=== PATIENT | female | born 1955 | race Caucasian/White ===

== ENCOUNTER 2016-11-03 11:18 | Inpatient (IN) | payer OTHER, MEDICAID ==
[2016-11-03] VITALS (8 sets, daily range): BP systolic 108–152; BP diastolic 55–93; PULSE 56–86; RESP 14–22; O2SAT 95–100
[~2016-11-03] VITALS: Ht 170.2 cm; Wt 55.4 kg
[~2016-11-03 11:18] MED LIST: ALBU8.5H4 IH; ASPI325T32 PO; ONDA8TAB10 PO; PROC25SU2 RC; TIOT18CA3 IH
--- NOTE | 2016-11-03 11:20 | ED.REPORT ---
HPI-Chest Pain 40 and Over Date of Service Nov 03, 2016 ED Provider: Dr. Manuel Pt is a 61 y/o female w/ a hx of COPD, gastroparesis, presenting to the ED via EMS c/o 08/25 substernal non-radiating CP onset unknown. She c/o associated SOB, nausea, vomiting. She was bradycardic to 40s on route. Medics gave 325 mg ASA but she immediately spit it up. They also gave 4 mg Zofran. social media marketing analyst was notified prior to arrival due to ST elevations in II, III, and AvF. There is no known history of cardiac disease. She is a poor historian. Nursing Notes Stated Complaint: STEMI Nursing Notes Reviewed: Yes Allergies: Coded Allergies: neomycin (Verified Allergy, Mild, REDDNESS,SWELLING, 10/30/14) Scheduled Tiotropium [place] (Spiriva) 18 Mcg Cap.w.dev 18 MCG IH DAILY Scheduled PRN Aspirin (Aspirin) 325 Mg Tablet 325 MG PO DAILY PRN PRN For Pain Ondansetron ODT (Ondansetron ODT) 8 Mg Tab.rapdis 8 MG PO QID PRN PRN For Nausea Prochlorperazine Maleate (Compro) 25 Mg Supp.rect 25 MG RC BID PRN PRN For Nausea General Time Seen by MD: 11:19 Chief Complaint Chest pain Hx Obtained From: Patient, EMS Arrived By: Ambulance Sudden in Onset?: No (unknown) Onset Occurred: Onset unknown Location: : Substernal Quality: Painful Radiation: : Does not radiate Severity: Current: Pain level 4 out of 10 Severity: Maximum: Pain level 4 out of 10 Past Medical History Past Medical History COPD Emphysema Anxiety Depression Chronic back pain IBS Gastroparesis Past Surgical History D&C Smoking History Former Smoker Social History Alcohol Use: Denies alcohol use Drug Use: THC Other Social History: Lives alone Ambulatory Status Independent Review of Systems Respiratory: Reports: Shortness of breath Cardiovascular: Reports: Chest pain GI: Reports: Nausea, Vomiting Complete sys rev & neg: except as marked. Physical Exam Initial Vital Signs Vital Signs (First) Date Time Temp Pulse Resp B/P Pulse Ox O2 Delivery O2 Flow Rate FiO2 11/03/16 11:21 35.6 60 21 134/57 100 Nasal Cannula 2 Initial VS: Reviewed, Vital signs normal Head / Eyes: Atraumatic, Normocephalic, PERRL ENT: Mucous membranes moist, Conjunctiva normal, No scleral icterus Neck: Supple, Full range of motion Extremities: Vascular intact, Neuro intact, No swelling Skin: Warm, Dry, No cyanosis Neurologic: Alert, Oriented, Nonfocal Psychiatric: Mood/affect normal, Behavior normal, Normal thought content General/Constitutional: Awake, Alert Distress / Hydration: Positive: Distress moderate Appearance / Presentation: Positive: Cyanotic, Frail, Ill appearing/not toxic Respiratory / Chest: Atraumatic, Breath sounds NL, Breath sounds = bilat, No respiratory distress, No rales, No rhonchi, No wheezing, No retractions, No stridor Cardiovascular: Heart rate NL, Regular rhythm, Heart sounds NL, No gallop, No murmurs, No rubs Abdomen: Atraumatic, Soft, No guarding, No rebound, No distention Tenderness/Guarding/Rebound: Positive: Tender epigastric (moderate) Interpretation & Diagnostics Interpretation & Diagnostics: Echocardiogram 11/03/16: Interpretation Summary 1) Normal left ventricular size, thickness, and systolic function (EF 65- 70%). 2) Distal anterior wall appears to have subtle hypokinesis. 3) No significant valvular disease. 4) No prior Echo available for comparison. Lab Results Interpretation Result Diagram: 11/03/16 1125 11/03/16 1125 Test 11/03/16 11:25 11/03/16 13:15 11/03/16 15:10 White Blood Count 12.7th/mm3 (3.8-10.1) Red Blood Count 4.83mil/mm3 (3.90-5.20) Hemoglobin 14.1g/dL (12.0-15.6) Hematocrit 41.5% (35.0-46.0) Mean Corpuscular Volume 85.9fL (81-100) Mean Corpuscular Hemoglobin 29.2pg (27.0-35.0) Mean Corpuscular Hemoglobin Concent 34.0% (32.0-37.0) Red Cell Distribution Width 13.8% (12.3-15.4) Platelet Count 275bil/L (150-400) Neutrophils (%) (Auto) 84.4% (40-74) Lymphocytes (%) (Auto) 11.0% (14-46) Monocytes (%) (Auto) 3.7% (4-12) Eosinophils (%) (Auto) 0.3% (0-5) Basophils (%) (Auto) 0.2% (0-3) Prothrombin Time 10.0sec (8.1-12.5) Prothromb Time International Ratio 0.94ratio D-Dimer 1.15mg/L FEU (<0.50) Sodium Level 139mEq/L (134-144) Potassium Level 4.3mEq/L (3.5-5.2) Chloride Level 101mEq/L (97-108) Carbon Dioxide Level 22mmol/L (18-29) Blood Urea Nitrogen 16mg/dL (8-27) Creatinine 0.79mg/dL (0.57-1.00) Estimat Glomerular Filtration Rate 106mL/min (>59) Glucose Level 227mg/dL (60-99) Calcium Level 9.5mg/dL (8.5-10.1) Magnesium Level 1.8mg/dL (1.6-2.6) Total Bilirubin 0.5mg/dL (0.0-1.2) Aspartate Amino Transf (AST/SGOT) 26U/L (0-50) Alanine Aminotransferase (ALT/SGPT) 23U/L (0-32) Alkaline Phosphatase 76U/L (25-165) Total Creatine Kinase 82U/L (21-215) Creatine Kinase MB 2.4ng/mL (0.0-5.3) Creatine Kinase MB % % (0.0-5.0) Pro-B-Type Natriuretic Peptide 115.8pg/mL (0-287) Total Protein 7.7g/dL (6.4-8.4) Albumin 4.2g/dL (3.4-5.0) Troponin T < 0.010ug/L (0.0-0.011) Procalcitonin 0.03ng/mL (0.00-0.08) Urine Color Straw (YELLOW) Urine Appearance Hazy (CLEAR,HAZY) Urine pH 8.0 (5.0-8.0) Urine Specific [employer] [facility] 1.010 (1.003-1.035) Urine Protein Tracemg/dL (NEG,TRACE) Urine Glucose (UA) 250mg/dL (NEGATIVE) Urine Ketones 15mg/dL (NEGATIVE) Urine Occult Blood Negative (NEGATIVE) Urine Nitrite Negative (NEGATIVE) Urine Bilirubin Negative (NEGATIVE) Urine Urobilinogen Normalmg/dL (NORMAL) Urine Leukocyte Esterase Negative (NEGATIVE) Urine RBC 0-2/hpf (0-2) Urine WBC 0-5/hpf (0-5) Urine Epithelial Cells Occasional/hpf (NONE-MOD) Urine Crystals Amorphous phosphates Urine Bacteria Moderate/hpf (NONE-FEW) Urine Hyaline Casts None/lpf (NONE) Urine Granular Casts None seen (NONE SEEN) Urine Waxy Casts None seen (NONE SEEN) Urine Red Blood Cell Casts None seen (NONE SEEN) Urine White Blood Cell Casts None seen (NONE SEEN) Urine Mucus None seen (None Seen) Urine Trichomonas None seen (NONE SEEN) Urine Yeast None (NONE SEEN) Urinalysis Comment None Urine Culture Reflexed Indicated Lab Results Interpretation: Urine drug screen positive for: THC, cocaine ECG Interpretation ECG Interpretation: Sinus rhythm rate [address] elevation Somewhat similar to previous Time: 11:24 Interpreted by: ED physician X-Ray Chest Interpretation Chest Xray Interpretation: IMPRESSION: No acute cardiopulmonary disease process. Dictated by: Ingrid Ruby MD, PhD on 11/03/2016 at 11:40 Approved by: Ingrid Ruby MD, PhD on 11/03/2016 at 11:41 View: Portable, 1 view Interpretation / Wet Read by: Interpret - Radiologist CT Chest Interpretation IMPRESSION: 1. No pulmonary emboli. 2. Tree in bud nodularity within the right middle lobe and right upper lobe is suspicious for pneumonia. This appearance often is seen in the setting of an atypical pneumonia, such as Mycobacterium avium complex and clinical correlation is recommended. 3. Small hiatal hernia with corresponding prominence of the wall of the esophagus. This probably is related to chronic reflux esophagitis. 4. Mild pulmonary consolidation within the right middle lobe and lingula is felt to represent atelectasis. However, six-month followup CT of the chest is recommended. 5. Chronic appearing compression deformities of the thoracic and lumbar spine. Dictated by: Bryant Kaminski M.D. on 11/03/2016 at 12:41 Approved by: Bryant Kaminski M.D. on 11/03/2016 at 12:49 Study type: CT pulm angiogram Interpretation / Wet Read by: Interpret - Radiologist Re-Eval/Medical Decision Med Decision/Clinical Course 61-year-old female started COPD, gastroparesis , poor historian presenting with chest pain and epigastric pain. Patient was called a code STEMI in route due to inferior ST elevations though on arrival EKG similar to previous. social media marketing analyst evaluated patient immediately and thought likely not STEMI. Patient was declining medications. She declines pain medications. She refused aspirin. Signs are stable. D-dimer was elevated CT [place] chest no PE but questionable pneumonia. She eventually did accept GI cocktail which improved her abdominal pain. Ballast Regulator Operator recommended admission and trending with no aspirin or heparin given her complaint of chest pain and EKG findings. Patient was given Rocephin and azithromycin for community-acquired pneumonia. Blood cultures were sent. Right upper quadrant ultrasound no cholecystitis or cholelithiasis. Patient admitted for ACS rule out a pneumonia. High suspicion that the chest pain was GI related however admitted per cardiology recommendation. Source of Hx: Old records Time of Eval: 14:02 Re-Evaluation/Progress Note: Pt rechecked. Finally took the GI cocktail. Informed pt of need for admission. Pt understands and agrees with plan for admission. All questions addressed. Consultation #1: Referral / Consult Name: Pedro Gayle MD Consulted With: Cardiology Call Returned at: 11:24 Dyer Helper: Will see patient, Agrees with eval, Agrees with plan Note: STEMI doc coming to evaluate. Requesting STAT echo. 12:00 - Brief read by paid search marketing strategist, no wall motion defects, vigorous LV. Requesting labs and serial EKGs Consultation #2: Referral / Consult Name: Pedro Gayle MD Consulted With: Cardiology Call Returned at: 14:01 Dyer Helper: Will see patient, Agrees with eval, Agrees with plan Note: Recommends admit. No heparin. No ASA. Trend troponins. Will consult during admit. Consultation #3: Referral / Consult Name: Triston Venegas MD Consulted With: Hospitalist Call Returned at: 15:08 Dyer Helper: Will see patient, Agrees with eval, Agrees with plan, Accepts admit Counseled Regarding: Diagnosis, Lab results, Need for admission Discharge & Departure Primary Impression: Chest pain Chest pain type: unspecified Qualified Code: R07.9 - Chest pain, unspecified Additional Impressions: Pneumonia Pneumonia type: due to unspecified organism Laterality: right Lung location : middle lobe of lung Qualified Code: J18.1 - Lobar pneumonia, unspecified organism Cocaine abuse Nausea & vomiting Vomiting type: unspecified Vomiting Intractability: intractable Qualified Code: R11.2 - Nausea with vomiting, unspecified Abdominal pain Abdominal location: epigastric Qualified Code: R10.13 - Epigastric pain Disposition: ADMITTED TO HOSPITAL Discharge Condition All VS Reviewed: Yes Condition: Stable Referrals: Arlene Hare MD (PCP) Crit Care Except Billable Proc Time Spent: 30-74 minutes (30 minutes) Services Performed: Patient management by me, Time spent at bedside, Reviewing test results, Reviewing imaging, Discussing patient care, Documentation in record Scribe Attestation Portions of this note were transcribed by Timothy Dye. I, Dr. Manuel personally performed the history, physical exam and medical decision-making; I reviewed and confirmed the accuracy of the information in the transcribed note. Signed by Lino Roman, 11/03/16 - 1130 copies to: Arlene Hare MD, Ben M MD Nov 03, 2016 11:20 TIMOTHY DYE Nov 03, 2016 11:27
[2016-11-03] MEDS ORDERED: Heparin 1,000 Units/500 mL NS Premix IV ONE (11:24)
[2016-11-03] MEDS ORDERED: Heparin 10,000 Unit/1,000 mL NS Premix IV ONE ×2 (11:24→11:27)
[2016-11-03] MEDS ORDERED: fentaNYL-PF 50 mCg/mL 2 mL Inj ONE (11:24)
[2016-11-03] MEDS ORDERED: Heparin 1,000 Unit/mL 10 mL Inj ONE (11:25)
[2016-11-03] MEDS ORDERED: Ondansetron 2 mg/mL 2 mL Inj ONE (11:25)
[2016-11-03 11:28] LABS: BASOPHILS % (AUTO) 0.2 % (0-3); EOSINOPHILS % (AUTO) 0.3 % (0-5); MONOCYTES % (AUTO) 3.7 % (4-12); Mean Corpuscular Hemoglobin 29.2 pg (27.0-35.0); Mean Corpuscular Volume 85.9 fL (81-100); NEUTROPHILS % (AUTO) 84.4 % (40-74); Platelet Count 275 bil/L (150-400)
[2016-11-03] MEDS ORDERED: Ondansetron 2 mg/mL 2 mL Inj IVPUSH ONE (11:40)
--- NOTE | 2016-11-03 11:43 | DRSVH ---
PROCEDURE: X-RAY CHEST ONE VIEW, PORTABLE ([id number]) INDICATIONS: chest pain TECHNIQUE: One view of the chest was acquired. COMPARISON: [facility], , CHEST 1VW (PORTABLE), 10/30/2014, 16:23. FINDINGS: Surgical changes and devices: None. Lungs and pleura: No pleural effusions or pneumothorax. Lungs are clear of acute opacities. Lungs a re slightly hyperinflated suggesting COPD; please correlate with clinical data.. Mediastinum: Mediastinal contours appear normal. Heart size is normal. Bones and chest wall: No suspicious bony lesions. Overlying soft tissues appear unremarkable. IMPRESSION: No acute cardiopulmonary disease process. Dictated by: Ingrid Ruby MD, PhD on 11/03/2016 at 11:40 Approved by: Ingrid Ruby MD, PhD on 11/03/2016 at 11:41
[2016-11-03 11:51] LABS: TROPONIN T 0.01 ug/L (0.0-0.011)
[2016-11-03 11:52] LABS: D-Dimer 1.15 mg/L FEU (<0.50); INR 0.94 ratio
[2016-11-03] MEDS ORDERED: LidocaineVisc 2%:Antacid 1:1 10 mL Syringe PO ONE (12:00)
[2016-11-03 12:15] LABS: Magnesium 1.8 mg/dL (1.6-2.6)
[2016-11-03 12:41] LABS: Creatine Kinase 82 U/L (21-215)
[2016-11-03] MEDS: Azithromycin Inj 500 MG in Dextrose 5% w/Vial Mate 250 ML IV ONE ×2 (13:17→15:15)
--- NOTE | 2016-11-03 13:39 | DRSVH ---
[facility] [address] [place] [address] Echocardiogram Report Name: RACHEL OBANDO Faizan e: 11/03/2016 Height: 67 in Hospital Exam Location: [facility] Weight: 125 lb Gender: Female BSA: 1.7 m2 : 1955 Age: 61 yrs BP: 134/57 mmHg Reason For Study: CHEST PAIN Ordering Physician: Performed By: Raul Humphrey Interpretation Summary 1) Normal left ventricular size, thickness, and systolic function (EF 65- 70%). 2) Distal anterior wall appears to have subtle hypokinesis. 3) No significant valvular disease. 4) No prior Echo available for comparison. Procedure: A two-dimensional transthoracic echocardiogram with color flow and Doppler was performed. The study quality was technically good. There is no prior echocardiogram noted for this patient. The subcostal views were not obtained due to the patient's abdominal pain. The patient was in normal sinus rhythm during the exam. Left Ventricle: The left ventricle is normal in size. There is normal left ventricular wall thickness. A false chord is noted (normal variant). The ejection fraction is estimated to be 65-70%. Left ventricular systolic function is normal. Distal anterior wall appears to have subtle hypokinesis. Right Ventricle: The right ventricle is normal in size and function. Atria: The left atrial size is normal. Right atrial size is normal. The interatrial septum is intact with no evidence for an atrial septal defect. Mitral Valve: The mitral valve is normal in structure and function. There is trace mitral regurgitation. Aortic Valve: The aortic valve is trileaflet. The aortic valve opens well. There is no aortic valve stenosis. There is trace aortic regurgitation. Tricuspid Valve: The tricuspid valve is normal in structure and function. There is trace tricuspid regurgitation. Pulmonic Valve: The pulmonic valve is normal in structure and function. There is trace pulmonic regurgitation. Great Vessels: The aortic root is normal size. The dimensions of the ascending aorta are normal. The pulmonary artery is normal size. The inferior vena cava was not visualized. Pericardium/ Pleura There is no pericardial effusion. There is no pleural effusion. MMode/2D Measurements & Calculations LVIDd: 4.2 cm RA long axis Ao root diam LVIDs: 2.1 cm LA A2 area: 13.7 cm FS: 49.4 % LA A4 area: 15.6 cm RA area Aortic Jxn IVSd: 0.53 cm LA length (vol): 4.5 cm LVPWd: 0.93 cm LA vol: 40.6 ml : 14.7 cm asc Aorta LA vol index RA vol: 42.2 mlDiam: 2.7 cm RA : 24.5 ml/m2 : 25.5 mm2 LV waldrop. diameter/BSA LV sys. diameter/BSA (cm/m^2): 2.5 (cm/m^2): 1.3 Doppler Measurements & Calculations Ao V2 max MV E max jerry MV E/A: 2.0 TR max jerry : 110.0 cm/sec : 115.5 cm/sec Med Peak E' Jerry : 268.8 cm/sec Ao max PG MV A max jerry TR max P.9 mmHg : 4.8 mmHg : 58.2 cm/sec E/E' med: 14.8 PA V2 max: 69.0 cm/sec Ao mean PG Lat Peak E' Jerry PA mean P.0 mmHg : 2.9 mmHg PA Accel Time: 0.13 sec E/E' lat: 11.9 E/e' average Pulm A Revs Dur MV A dur: 0.13 sec MV dec time Ao V2 mean PA V2 mean Pulm A Revs Dur - MV A : 0.16 sec : 81.4 cm/sec : 48.6 cm/sec Dur: -0.02 msec Ao V2 VTI: 29.4 cmPA pr(Accel) : 19.1 mmHg Reading Physician:01:39 PM
--- NOTE | 2016-11-03 13:51 | DRSVH ---
PROCEDURE: CT ANGIO CHEST PULMONARY EMBOLISM ([id number]) INDICATIONS: chest pain elevated ddimer TECHNIQUE: After the administration of intravenous contrast, 2 mm thick sections acquired from the pulmonary api natanael to the posterior costophrenic angles. 3-dimensional maximum intensity projection (MIP) coronal a nd sagittal reformats were then acquired through the thorax. For radiation dose reduction, the follo wing was used: automated exposure control, adjustment of mA and/or kV according to patient size. COMPARISON: [facility], , CHEST 2VW, 08/04/2008, 13:16. FINDINGS: Image quality: Excellent. Pulmonary arteries: Pulmonary arteries are normal in size, and demonstrate no intraluminal filling d efects to suggest central pulmonary embolism. Lungs and pleura: Evaluation of the lungs is somewhat difficult given expiratory imaging. However, t here does appear to be tree and bud nodularity within the right middle lobe and inferior aspect of th e right upper lobe, suspicious for pneumonia. There may be mild bronchial wall thickening within thi s region. No lobar consolidation, large effusion, or pneumothorax is evident. No lung masses are pr esent. No definite pulmonary nodules are appreciated. Soft tissue prominence on the medial aspect o f the right middle lobe and within the lingula is noted, which is felt to represent atelectasis (imag e 95, series 5). Mediastinum: Heart size is normal, without pericardial effusion. No mediastinal or hilar adenopathy . Thoracic aorta is normal in caliber and enhancement. Mild prominence of the wall of the esophagus is present. There is a small hiatal hernia. Bones and chest wall: No suspicious bony lesions. Ribs and thoracic spine appear intact throughout. An age-indeterminate compression deformity is noted involving the T6 vertebral body and the L1 vert ebral body. These appear to be chronic and probably have been present since 2008. Thyroid gland is not enlarged. No axillary or supraclavicular adenopathy. Abdomen: Visualized upper abdominal solid organs appear normal in the early arterial phase of enhanc ement. IMPRESSION: 1. No pulmonary emboli. 2. Tree in bud nodularity within the right middle lobe and right upper lobe is suspicious for pneumo erika. This appearance often is seen in the setting of an atypical pneumonia, such as Mycobacterium av ium complex and clinical correlation is recommended. 3. Small hiatal hernia with corresponding prominence of the wall of the esophagus. This probably is related to chronic reflux esophagitis. 4. Mild pulmonary consolidation within the right middle lobe and lingula is felt to represent atelec tasis. However, six-month followup CT of the chest is recommended. 5. Chronic appearing compression deformities of the thoracic and lumbar spine. Dictated by: Bryant Kaminski M.D. on 11/03/2016 at 12:41 Approved by: Bryant Kaminski M.D. on 11/03/2016 at 12:49
[2016-11-03] MEDS ORDERED: cefTRIAXone Inj 2,000 MG in Dextrose 5% Minibag Plus 50 ML IV ONE (14:05)
[2016-11-03] MEDS ORDERED: Alum-Mag Hydrox-Simeth 30 mL Suspension PO PRN ×2 (15:10→15:40)
[2016-11-03] MEDS ORDERED: Ondansetron 2 mg/mL 2 mL Inj IVPUSH PRN ×2 (15:10→15:40)
[2016-11-03 15:28] LABS: APPEARANCE,URINE HAZY (CLEAR,HAZY); COLOR,URINE STRAW (YELLOW); OCCULT BLOOD,URINE NEGATIVE (NEGATIVE); UROBILINOGEN,URINE NORMAL (NORMAL)
[2016-11-03] MEDS ORDERED: Polyethylene Glycol (PEG) 17 Gm Powder PO PRN (15:40)
--- NOTE | 2016-11-03 16:14 | PCM.HPMED ---
Subjective Date of Service Nov 03, 2016 Primary Provider: Admitting Physician: Triston Venegas MD Primary Care Physician: Arlene Hare MD Attending Physician: Triston Venegas MD Admit Status: From the Emergency Department, 23-Hour Observation, Admit to [place] Team, Remote Telemetry Chief Complaint: Epigastric pain/8h NAUSEA and vomiting/8h History of Present Illness: 67-year-old lady hospital history of COPD, IBS, anxiety came to emergency room due to epigastric pain and nausea/vomiting of 8 hours. Patient states she started to have sudden onset epigastric pain this morning. Pain is dull aching,4/10, intermittent. She then developed nausea and repeated episodes of dry heaves. She also had an episode of vomiting of bilious matter. She states she has on and off dry cough, denies recent worsening. Denies any fever. Admits to occasional marijuana use but denies cocaine use. Urine tox positive for marijuana and cocaine in ER Denies diaphoresis. EMS was called and noted JORGE on inferior leads and activated STEMI code. ER course: EKG with some ST elevation on inferior leads but not much changed from baseline. Troponin negative. Start echo obtained and Dr Marinelli evaluated, no gross wall motion abnormality seen Urine tox positive for marijuana on and cocaine D-dimer is elevated and CTA obtained, negative for PE but shows consolidation on right upper and meddle lobe . wbc 12.7 Ceftriaxone and azithromycin initiated .GI cocktail given with some relief of epigastric pain and admission requested. Review of Systems: A comprehensive review of systems performed, pertinent positives and negatives included in HPI Allergies Coded Allergies: neomycin (Verified Allergy, Mild, REDDNESS,SWELLING, 10/30/14) Home Medications Tiotropium [place] (Spiriva) 18 Mcg Cap.w.dev 18 MCG IH DAILY Scheduled PRN Albuterol HFA (Albuterol HFA) 8.5 Gm Hfa.aer.ad 2 PUFF IH Q4 PRN PRN For Shortness of Breath Aspirin (Aspirin) 325 Mg Tablet 325 MG PO DAILY PRN PRN For Pain Ondansetron ODT (Ondansetron ODT) 8 Mg Tab.rapdis 8 MG PO QID PRN PRN For Nausea Prochlorperazine Maleate (Compro) 25 Mg Supp.rect 25 MG RC BID PRN PRN For Nausea PMH COPD/Emphysema Anxiety/Depression Chronic back pain IBS Gastroparesis Surgical History D&C Family History Reviewed and unremarkable Social History Hx Alcohol Use: No Hx Substance Use: Yes (MAURIJAUNA) Hx Tobacco Use: Yes (1 CIGARETTE EVERY 3 DAYS) Smoking Status: Former Smoker Exam Vital Signs Vital Sign - Last Date Time Temp Pulse Resp B/P Pulse Ox O2 Delivery O2 Flow Rate FiO2 11/03/16 15:15 37 56 20 129/55 99 Room Air 11/03/16 12:37 3 Exam Gen. patient is having dry heaves HEENT: Head is normocephalic atraumatic, Pupils equal and reactive, extraocular movements intact, Lungs clear to auscultation bilaterally Heart regular rate and rhythm without murmurs gallops or rubs Abdomen soft , mild epigastric tenderness without hepatosplenomegaly Extremities pulses are present dorsalis pedis posterior tibialis and radial. tSkin is warm and dry there are no rashes, Psych alert and oriented to person place and time Neuro cranial nerves II through XII are grossly intact Lymph: There is no lymphadenopathy appreciated in the cervical supra infraclavicular regions : no boo Lab and Diagnostics Result Diagram: 11/03/16 1125 11/03/16 1125 X-Rays, CTs and MRIs PROCEDURE: CT ANGIO CHEST PULMONARY EMBOLISM ([id number]) INDICATIONS: chest pain elevated ddimer IMPRESSION: 1. No pulmonary emboli. 2. Tree in bud nodularity within the right middle lobe and right upper lobe is suspicious for pneumonia. This appearance often is seen in the setting of an atypical pneumonia, such as Mycobacterium avium complex and clinical correlation is recommended. 3. Small hiatal hernia with corresponding prominence of the wall of the esophagus. This probably is related to chronic reflux esophagitis. 4. Mild pulmonary consolidation within the right middle lobe and lingula is felt to represent atelectasis. However, six-month followup CT of the chest is recommended. 5. Chronic appearing compression deformities of the thoracic and lumbar spine. Dictated by: Bryant Kaminski M.D. on 11/03/2016 at 12:41 Cardiac Echo Impressions Interpretation Summary 1) Normal left ventricular size, thickness, and systolic function (EF 65- 70%). 2) Distal anterior wall appears to have subtle hypokinesis. 3) No significant valvular disease. 4) No prior Echo available for comparison. Assessment & Plan 67-year-old lady hospital history of COPD, IBS, anxiety came to emergency room due to epigastric pain and nausea/vomiting of 8 hours. # Intractable nausea and vomiting -due to gastroparesis vs due to marijuana use -zodran prn,morphine prn -RUQ US requested #Epigastric/chest pain -due to above vs due to pneumonia -ACS unlikely given echo and negative trops,cocaine vasospasm possible .serial trops .PE ruled out -avoid BB,ASA given en route to ED,ativan prn for anxiety -pain control with morphine # suspected pneumonia -patient has chronic cough without recent worsening ,wbc mildly elevated,CT chest shows atypical pneumonia,c/w ceftriaxone and azithromycin .procal pending # history of COPD -c/w Spiriva and duneb prn # suspected substance abuse -ED utox positive for marijuana and cocaine patient denies using any cocaine. she states her neighbor uses it but she does not -drug screen and then SW consult for CD assessment observation status full code Resuscitation Status: CPR: Attempt Resuscitation copies to: Arlene Hare MD, Melaku MD Nov 03, 2016 16:13
--- NOTE | 2016-11-03 16:35 | NUR ---
Admit/critical value Pt arrived via stretcher from ER. Able to stand and transfer from gonzalez to scale and into bed. Occas retching c/o abd pain, generalized from retching. 1754 notified of critical lactic acid 5.1. [address] abd/pelvis r/o ischemic bowel
[2016-11-03] MEDS ORDERED: AZEL137S11 NOSTRIL (16:36)
[2016-11-03] MEDS ORDERED: ALBU8.5H2 INH (16:36)
[2016-11-03] MEDS ORDERED: UMEC62.5 INH (16:36)
[2016-11-03] MEDS: 0.9% Sodium Chloride 1,000 ML IV SCH (17:05)
--- NOTE | 2016-11-03 17:19 | CONS ---
[address] [address] CONSULTATION REPORT PATIENT: RACHEL OBANDO : 1955 MR#: [id number] ADMIT: 11/03/2016 JOB ID: [id number] INITIAL CRITICAL CARE EVALUATION: DATE OF SERVICE: 11/03/16Thursday, November 03, 2016 CONSULTING PHYSICIAN: Cardiology--Pedro Gayle MD. PROBLEMS: 1. "STEMI": a. Called for STEMI activation because of ECG. b. Acute illness with some chest discomfort. 2. Acute illness: a. Initial diagnosis not clear. b. Chief complaint is intractable "dry heaves." c. Abdominal pain. d. History of chronic abdominal problems. 3. CAD risk factors: a. No history of diabetes. b. No history of treated hypertension. c. No history of treated hyperlipidemia. 4. Cigarette smoking--discontinued one year ago. CHIEF COMPLAINT: "STEMI." HISTORY OF PRESENT ILLNESS: I came emergently to the emergency department after paged because of "STEMI" on ECG. This 61-year-old woman just arrived by EMS transport from home at about 11:30 a.m. Cardiology is consulted because of apparent ST-elevation on ECG. EMS describes that they found the patient at her home, looking very, very ill and poorly. They interpreted ECG as ST elevation with reciprocal ST depression. She received aspirin which she vomited. On arrival to the ED, the ECG suggested ST elevation. The patient is retching repeatedly. Otherwise, vital signs have been intact. Her chief complaint is intractable nausea for about 4 hours since awakening this morning. She was well until this morning. She describes chest discomfort only on direct questioning, which appears to be unclear. Note that overall she appears very ill initially and is unable to give almost any meaningful history. She has abdominal pain as well. She has low back pain. She denies prior known heart disease or cardiac evaluation or diagnoses. Unable to have her tell us about any other cardiac symptoms of heart failure or arrhythmia or preceding ischemic symptoms. The brief review of her medical record indicates she has had extensive ongoing evaluation for GI problems including an admission for similar symptoms of intractable nausea a year ago. She has also had upper endoscopy, colonoscopy and biopsies. ALLERGIES: She is unable to state. The [facility] record indicates NEOMYCIN. MEDICINES: She is unable to tell us on repeat questioning what medicine she takes. She vomited the 1st dose of aspirin and spit out a 2nd dose of aspirin unchewed. She has received no other cardiac treatment. She has received ondansetron and is still vomiting. PAST MEDICAL HISTORY: She is unable to state. [facility] indicates a past history of sleep apnea. REVIEW OF SYSTEMS: She is unable to answer a 13 point review of systems, however, I note: She reports no history of CVA. She reports no bleeding symptoms. PERSONAL AND SOCIAL HISTORY: Very difficult to obtain any history from her currently. Cigarettes--she stopped a year ago. She apparently has a history of COPD. Alcohol--she says she does not drink much alcohol. Drugs--she does not use other drugs except for marijuana. She says she lives alone in an apartment. No family or friends are present. FAMILY HISTORY: She cannot state presently. PHYSICAL EXAMINATION: A cachectic, chronically ill-appearing woman who appears much older than her stated age. She appears acutely ill with retching initially with short of breath but later not short of breath. She appears to have abdominal discomfort. VITAL SIGNS: Blood pressure 137/80, heart rate 57, regular, in sinus bradycardia on telemetry without any ventricular or supraventricular arrhythmia. Respiratory rate 18 and unlabored with O2 saturation 96% on nasal cannula. Weight she states 126 pounds. NEUROLOGIC: Mental status: No overt focal neurologic defect noted. She is awake, not fully alert, very uncomfortable, but otherwise responsive and appropriate. No overt focal neurologic defect noted. HEENT: PERRL. Conjunctivae are pale. Sclerae anicteric. Mouth and mucous membranes intact. NECK: Carotid upstroke intact bilaterally without bruit. Jugular venous pressure difficult to assess but appear unremarkable. No palpable thyromegaly. No palpable cervical lymphadenopathy. LUNGS: Note diffusely diminished breath sounds consistent with the history of COPD. CARDIAC: There is diffuse chest wall tenderness that appears moderately severe. HEART EXAMINATION: Otherwise notable for regular rhythm, S4, and there is no prominent murmur noted. ABDOMEN: Flat with diffuse tenderness especially in the upper abdomen and right upper quadrant without obvious rebound tenderness. Otherwise, no mass or hepatosplenomegaly. EXTREMITIES: No edema. Pedal pulses faintly intact bilaterally. DIAGNOSTIC STUDIES: ELECTROCARDIOGRAM: I reviewed the tracings from EMS that were thought to show overt changes as well as a prior ECG from fall 2015 and two ECGs done in the emergency department. They are all similar showing a sinus rhythm with subtle inferior concave upward ST elevation less than 1 [address] depression, V4 in the EMS ring was unremarkable. Overall ECG is not outside normal limits and not diagnostic for ST elevation and overall unimpressive for acute coronary syndrome. Chest x-ray: Stat chest x-ray film shows overt changes of COPD with substantial hyperinflation but no apparent cardiac abnormality, specifically no cardiomegaly, no pulmonary venous hypertension or heart failure and mediastinum is not widened. LABORATORY: No laboratory available yet. ASSESSMENT: I discussed the findings, impressions and management considerations with the patient as much as she was able to discuss; and with the EMS personnel; and with ED, Dr. Qasim Aguilar includin. Acute illness with question of ST segment elevation myocardial infarction (STEMI): Overall, she appears acutely ill. The ECG raised question of acute coronary syndrome with acute myocardial infarction. There may be some chest discomfort, but it is difficult to tell. Overall, her acute illness does not point directly to the heart. The strongest suspicion is regarding abdominal pain and tenderness especially in the upper epigastric and right upper quadrant. The ECG is not consistent with a STEMI. Overall, I suspect this is not a cardiac problem, although it is not excluded at this early stage. RECOMMENDATION: 1. Defer emergent cardiac catheterization. 2. Follow up acute cardiac evaluation to be sure no acute cardiac problem develops. 3. Rule out TN protocol including early followup ECG, serial ECG and serial cardiac markers include CK total, CK-MB and troponin. 4. Admit to hospitalist. 5. Your ongoing emergent evaluation and critical care support to delineate the etiology of her acute illness--especially suspect focus on abdominal etiology including gallbladder disease and pancreatitis may be considered. 6. Echocardiogram stat. 7. Please reconsult for cardiology followup. 8. Would hold on cardiac medications including even aspirin and heparin at this point until her clinical scenario and diagnosis are more clearly delineated. 9. Followup note: Echocardiogram: I preliminarily reviewed the images of the stat echocardiogram done at the bedside as they were being obtained. LV size and global LV systolic function are intact. There is no wall motion defect specifically no inferior wall motion defect. This is strong evidence that there is not an ST elevation TN under way. Full echo results and final report pending.
--- NOTE | 2016-11-03 17:22 | DRSVH ---
PROCEDURE: US ABDOMEN, LIMITED ([id number]) INDICATIONS: right upper quadrant TECHNIQUE: Real-time focused scanning was performed of the abdomen, with image documentation. COMPARISON: None. FINDINGS: Limited sonographic images demonstrate the gallbladder to be unremarkable. There is no diff use gallbladder wall thickening, measuring 1.7 mm. No stones are identified. The common bile duct is within normal limits measuring 3.4 mm. IMPRESSION: Unremarkable exam. Dictated by: Gina Branham M.D. on 11/03/2016 at 17:19 Approved by: Gina Branham M.D. on 11/03/2016 at 17:20
[2016-11-03] MEDS ORDERED: Heparin 5,000 Unit/mL Inj IVPUSH PRN (18:05)
[2016-11-03] MEDS ORDERED: 0.9% Sodium Chloride 1,000 ML IV ONE ×2 (18:05)
[2016-11-03] MEDS ORDERED: Heparin 25K Unit/500mL 0.45 NS 25,000 UNIT in IV Premix 1 EACH IV SCH (18:05)
--- NOTE | 2016-11-03 18:26 | NUR ---
CT Pt taken in w/ch to CT. some retching present. educational technician notified.
[2016-11-03] MEDS: LORazepam 1 mg Tablet PO PRN (18:51)
--- NOTE | 2016-11-03 19:26 | DRSVH ---
PROCEDURE: ANGIO ABD/PELVIS W/CON INDICATIONS: suspected ischemic bowel TECHNIQUE: After the administration of intravenous contrast, 2 and 5 mm sections acquired from the diaphragm to the iliac crests. 3-dimensional maximum intensity projection (MIP) coronal and sagittal reformats, a nd/or 3-dimensional volume rendering reformatting was then performed. For radiation dose reduction, the following was used: automated exposure control. COMPARISON: Merged With [facility], CT, ABD/PELVIS W/CON (PNL), 05/24/2014, 8:01. [facility], CT, ABD/PELVIS W/CON (PNL), 10/30/2014, 13:27. FINDINGS: Image quality: Excellent. Extravascular tissues: There is a partial as appearance of nodularity within the right middle lobe, b nomi appreciated on CT chest dated 11/03/16. Heart size is normal. Liver and spleen are normal in si ze and enhancement. Gallbladder is unremarkable. Biliary system is non dilated. Pancreas enhances normally. No adrenal nodules. Kidneys are normal in size and enhancement, without hydronephrosis. There is thickening and inflammatory change surrounding the descending and sigmoid colon. Very minima l diverticula are identified. There is no free air or free fluid. Mild No free fluid or air. No retr operitoneal or mesenteric adenopathy. No ventral hernias. No suspicious bony abnormalities. No manish tebral body compression fractures. Abdominal aorta: There no areas of hemodynamically significant stenosis, vascular occlusion or aneury smal dilation. Mesenteric arteries: The superior and inferior mesenteric arteries are patent without gross evidence of occlusion within the visualized portions. It is noted that the presence of opacification within th e distalmost branches is equivocal throughout the colon. Renal arteries: Renal arteries are patent without hemodynamically significant stenosis. IMPRESSION: 1. Thickening and inflammatory change within the sigmoid and descending colon as described above. Medina earance is suggestive of colitis, possibly secondary to diverticulitis. Other etiologies such as infl ammatory/infectious/ischemic colitis cannot be definitively excluded. As noted above, the superior in ferior mesenteric arteries appear patent. There is opacification identified throughout the colon. Vis ualized opacification of punctate distal branches are not well visualized throughout the abdomen, lik ady secondary to small size. Small areas of distalmost occlusion cannot be definitively excluded. Dictated by: Gina Branham M.D. on 11/03/2016 at 19:19 Approved by: Gina Branham M.D. on 11/03/2016 at 19:24
[2016-11-03] MEDS ORDERED: Piperacillin-Tazo 3.375 Gm Inj 3.375 GM in Dextrose 5% Minibag Plus 50 ML IV ONE (20:30)
[2016-11-04] VITALS (7 sets, daily range): BP systolic 110–138; BP diastolic 61–85; PULSE 76–91; RESP 16–20; O2SAT 94–99
--- NOTE | 2016-11-04 00:57 | CONS ---
[address] [address] CONSULTATION REPORT PATIENT: RACHEL OBANDO : 1955 MR#: [id number] ADMIT: 11/03/2016 JOB ID: [id number] DATE OF SERVICE: 11/03/2016 CHIEF COMPLAINT: A 67-year-old lady seen in consultation at the request of Triston Venegas MD, for possible acute abdomen. HISTORY OF PRESENT ILLNESS: The patient is a 67-year-old lady who came to the emergency department today due to epigastric abdominal pain, nausea, vomiting. She also has had on and off dry cough. EMS was called due to her symptoms and they activated a ST-elevation OR code due to the changes seen on the inferior leads. Evaluation in the emergency department did not show significant change in her EKG from her baseline, and her troponin was negative. The echocardiogram did not show any gross wall motion abnormalities, and she was admitted to the hospital for observation. When she was found to have an elevated lactate, the Surgery team was consulted, along with a CT scan request. Talking to her, she feels like these symptoms are something that she deals with on and off, and they do not feel significantly outside the realm of what she experiences periodically. She has a diagnosis of irritable bowel syndrome. OTHER MEDICAL PROBLEMS: 1. Chronic obstructive pulmonary disease. 2. Anxiety and depression. 3. Chronic back pain. 4. Irritable bowel syndrome. 5. Gastroparesis. PRIOR OPERATIONS: Dilatation and curettage. SOCIAL HISTORY: She does continue to smoke. She does use marijuana. IMAGING: Chest x-ray on November 03, 2016, was normal. A CT angiogram on November 03, 2016, showed small hiatal hernia. Mild pulmonary consolidation in the right middle lobe. Abdominal ultrasound performed on November 03, 2016, was normal. CT abdomen and pelvis performed on November 03, 2016, showed some possible thickening surrounding the descending and sigmoid colon, thought to be potentially related from diverticulitis or ischemic colitis. REVIEW OF SYSTEMS: Twelve point review of systems negative other than the pertinent positives noted in the history of present illness and other medical problems. PHYSICAL EXAM: A 61-year-old lady in no acute distress. Temperature 36.4, pulse 75, blood pressure 152/92, saturating 96% on room air. Eyes: Normal pupils, conjunctivae. Ears, nose, and throat: Normal external appearance. Respiratory: Bilateral crackles. Cardiovascular: Regular rate and rhythm. Gastrointestinal: Tender to deep palpation in the upper mid abdomen. Essentially nontender in the lower abdomen and the left lower quadrant. Neurologic: No gross deficits. Psychiatric: Alert, appropriate. LABORATORIES: White blood cell count 12.7, platelet count 275, hemoglobin 14.1. Lactic acid 5.1. Troponin normal. INR 0.9. ASSESSMENT AND PLAN: A 61-year-old lady with abdominal pain and vomiting from unclear etiology. No obvious bowel obstruction. Not too impressed with the suggestion of colitis on the CT scan. She has no diarrhea or other symptoms supporting that diagnosis. We can try volume depletion and repeat blood tests to ensure improvement. I do not see any indication of a surgical problem or indication for surgical intervention. Please call us back if you have any questions or concerns.
[2016-11-04] MEDS: 0.9% Sodium Chloride 1,000 ML IV SCH ×3 (03:25→17:11)
[2016-11-04] MEDS ORDERED: Piperacillin-Tazo 3.375 Gm Inj 3.375 GM in Dextrose 5% Minibag Plus 50 ML IV SCH (04:30)
--- NOTE | 2016-11-04 06:07 | NUR ---
Activity Pt states stomach is feeling somewhat better. Patient states she has mild nausea with some movements.
[2016-11-04 06:15] LABS: BASOPHILS % (AUTO) 0.1 % (0-3); EOSINOPHILS % (AUTO) 0.5 % (0-5); MONOCYTES % (AUTO) 9.8 % (4-12); Mean Corpuscular Hemoglobin 28.6 pg (27.0-35.0); Mean Corpuscular Volume 86.6 fL (81-100); NEUTROPHILS % (AUTO) 62.7 % (40-74); Platelet Count 200 bil/L (150-400)
[2016-11-04 06:44] LABS: Magnesium 1.8 mg/dL (1.6-2.6)
[2016-11-04] MEDS ORDERED: cefTRIAXone Inj 1,000 MG in Dextrose 5% Minibag Plus 50 ML IV SCH (08:30)
[2016-11-04] MEDS ORDERED: Azithromycin Inj 500 MG in Dextrose 5% w/Vial Mate 250 ML IV SCH (08:30)
[2016-11-04] MEDS ORDERED: Ciprofloxacin Inj 400 MG in IV Premix 1 EACH IV SCH (08:40)
[2016-11-04] MEDS: metroNIDAZOLE Inj 500 MG in IV Premix 1 EACH IV SCH ×2 (09:38→20:55)
[2016-11-04] MEDS: Levofloxacin 750 mg/150 mL D5W IV SCH (10:59)
--- NOTE | 2016-11-04 12:16 | NUR ---
Social Work-screening/ readiness for discharge: Data:EMR Reviewed. Pt is a 61 y/o female who was admitted on 11/03/16 for chest pain per H&P. Pt's insurance is [facility] and PCP is Arlene Hare MD. EMR reviewed. Pt's readmission score is 4. SW spoke with pt at bedside, SW role explained. Pt resides at home alone where she remains independent with ADLS. Pt drives and does not use any DME. Pt has no HH or SNF history. SW discussed DPOA/ advanced directive, pt has not completed this, SW provided pt with a copy. Pt confirms her friend will provide transport home at discharge. No anticipated discharge needs. SW will continue to follow if needs arise. Assessment:Pt who is independent at baseline. Plan:Pt to discharge home when medically stable via POV. No anticipated discharge needs. SW will continue to follow if needs arise. FELICITA Ricardo
--- NOTE | 2016-11-04 13:49 | CONS ---
[address] [address] CONSULTATION REPORT PATIENT: RACHEL OBANDO : 1955 MR#: [id number] ADMIT: 11/03/2016 JOB ID: [id number] DATE OF SERVICE: 11/04/2016 I had the pleasure of seeing the patient at [facility] for abdominal pain and diverticulitis. This is a 67-year-old lady with underlying COPD, anxiety, depression, irritable bowel syndrome, obviously gastroparesis who was seen by Dr. Jaeger in the GI Clinic for abdominal pain. It appears that she has been followed by him for the past year or so. She also had issues with dysphagia. She was recommended for EGD and she also had irritable bowel syndrome with diarrhea and she had a colonoscopy done which they found polyps in 2014 and diverticulosis in the left side and internal hemorrhoids. It appears she did not get an upper endoscopy and she did not followup. There was a x-ray test that was requested by Dr. Jaeger which showed essentially nothing significant. Her story began throughout the week where she had increased stress due to her family issues, neighbors, etc. She came in due to epigastric abdominal pain associated with nausea, vomiting. Essentially she says she has been having dry heaving for the past several days and the dry heaving caused her to have epigastric discomfort. EMS was called due to her symptoms and they thought she had ST-segment elevation. An CO code was done. Evaluation in the emergency department did not show any significant changes in her EKG and this was her baseline. Her troponins were negative. Echocardiogram did not show any gross wall motion abnormality and she was admitted to the hospital for observation. However, they noted she had elevated lactate level. Surgery was consulted and CT scan was done and CT scan showed possible colitis, i.e., diverticulitis, but there were not sure. She had an abdominal CT scan which showed thickening and inflammatory changes within the sigmoid and part of the descending colon. They said there was a very minimal diverticula identified. However, a colonoscopy that was done in 2014 showed diverticulum. No free air was noted. However, she is not having any pain in the lower abdomen. She seems to have pain on the upper abdomen, but she said her pain is gone. Her dry heaving is gone. She feels comfortable. Ultrasound was done which was unremarkable and apparently they did a CT angiogram which showed no pulmonary emboli, and according to the note, there is no evidence of significant cardiac issue or active cardiac issue at this point. She was also seen by cardiology and they felt that she had no acute coronary event. Therefore, catheterization was deferred. Because of the CT findings, GI was called. In terms of review of systems, she said her dry heaving is gone. Her abdominal pain is gone and she feels fine. She feels hungry. She wants to eat. She had no fever, chills, nausea, vomiting, headaches, blurred vision, dizziness, lightheadedness, chest pain, shortness of breath, blood in the stools, black stools, change in bowel patterns. PAST MEDICAL HISTORY: 1. COPD. 2. Anxiety. 3. Depression. 4. Chronic back pain. 5. IBS. 6. Gastroparesis. PAST SURGICAL HISTORY: Dilation and curettage. SOCIAL HISTORY: She smokes, does use marijuana. No alcohol. CURRENT MEDICATION: Include levo, Flagyl, Ativan, MiraLAX, senna, Zofran and Maalox. PHYSICAL EXAMINATION: The patient is alert, oriented, does appear comfortable. Temperature 36.9, pulse 89, respiration 18, blood pressure 120/85. Head and neck: No icterus. No lymphadenopathy. Lungs: Decreased breath sounds with some mild expiratory wheezing. Cardiovascular: Regular rate and rhythm with normal S1, S2. Abdomen: Soft, nontender, mild distention with normoactive bowel sounds. Extremities: No pitting edema of the ankles. Skin shows no jaundice. Radial pulses bilateral, strong and intact. LABORATORY DATA: Hemoglobin is 11.1, it was 14.1. Platelets 200. White count 8500. Chemistry shows normal LFTs. Lactic acid is normal at 0.7. INR 0.94. PTT was 25.8. IMPRESSION and PLAN: This is a lady who has a history of irritable bowel syndrome. CT showing what looks like a colitis probably secondary to diverticulitis. But she is not having abdominal pain. She has no tenderness on the left side.. Ulcerative colitis is a possibility but I would expect her to have some blood in the stool which she denies. Infectious colitis would cause some seroma diarrhea as well. She is supposed to get an upper endoscopy as an outpatient by Dr. Jaeger. However, I will talk to anesthesia because she does have pneumonia. This was seen in CT angio. If anesthesia does not have any issues with doing an upper endoscopy prior to her going home because of nausea and vomiting, will proceed with esophagogastroduodenoscopy. But she does have a history of gastroparesis which may explain the dry heaving and nausea and vomiting. At this point, we will hold off on doing instrumentation of the colon because diverticulitis is in the differential and this could be looked into as an outpatient. The patient is to followup with gastrointestinal with Dr. Jaeger 1-2 weeks after discharge. PEPITO
--- NOTE | 2016-11-04 14:02 | PCM.PNMED ---
Subjective Date of Service Nov 04, 2016 Subjective Abdominal pain much improved. Nausea and vomiting much improved. Afebrile Exam Vital Signs Vital Sign - Last Date Time Temp Pulse Resp B/P Pulse Ox O2 Delivery O2 Flow Rate FiO2 11/04/16 12:00 36.9 89 18 128/85 99 Room Air 11/03/16 12:37 3 Intake and Output 11/03/16 11/03/16 11/04/16 Cumulative From/Thru 15:00 23:00 07:00 11/03/16 11:21 - 11/04/16 05:56 Intake Total 3758 ml 3758 ml Output Total 1200 ml 1200 ml Balance 2558 ml 2558 ml Intake Oral 500 ml 500 ml IV Total 3258 ml 3258 ml Output Urine Total 1200 ml 1200 ml Exam Gen. patient is having dry heaves HEENT: Head is normocephalic atraumatic, Pupils equal and reactive, extraocular movements intact, Lungs clear to auscultation bilaterally Heart regular rate and rhythm without murmurs gallops or rubs Abdomen soft , mild epigastric tenderness without hepatosplenomegaly Extremities pulses are present dorsalis pedis posterior tibialis and radial. tSkin is warm and dry there are no rashes, Psych alert and oriented to person place and time Neuro cranial nerves II through XII are grossly intact Lymph: There is no lymphadenopathy appreciated in the cervical supra infraclavicular regions : no boo IVs and Medications Medications Reviewed: Medications were reviewed in detail Lab and Diagnostics Result Diagram: 11/04/16 0610 11/04/16 0610 X-Rays, CTs and MRIs PROCEDURE: CT ANGIO CHEST PULMONARY EMBOLISM ([id number]) INDICATIONS: chest pain elevated ddimer IMPRESSION: 1. No pulmonary emboli. 2. Tree in bud nodularity within the right middle lobe and right upper lobe is suspicious for pneumonia. This appearance often is seen in the setting of an atypical pneumonia, such as Mycobacterium avium complex and clinical correlation is recommended. 3. Small hiatal hernia with corresponding prominence of the wall of the esophagus. This probably is related to chronic reflux esophagitis. 4. Mild pulmonary consolidation within the right middle lobe and lingula is felt to represent atelectasis. However, six-month followup CT of the chest is recommended. 5. Chronic appearing compression deformities of the thoracic and lumbar spine. Dictated by: Bryant Kaminski M.D. on 11/03/2016 at 12:41 PROCEDURE: ANGIO ABD/PELVIS W/CON INDICATIONS: suspected ischemic bowel TECHNIQUE: After the administration of intravenous contrast, 2 and 5 mm sections acquired from the diaphragm to the iliac crests. 3-dimensional maximum intensity projection (MIP) coronal and sagittal reformats, and/or 3-dimensional volume rendering reformatting was then performed. For radiation dose reduction, the following was used: automated exposure control. COMPARISON: [facility], CT, ABD/PELVIS W/CON (PNL), 05/24/2014, 8: 01. [facility], CT, ABD/PELVIS W/CON (PNL), 10/30/2014, 13:27. FINDINGS: Image quality: Excellent. Extravascular tissues: There is a partial as appearance of nodularity within the right middle lobe, better appreciated on CT chest dated 11/03/16. Heart size is normal. Liver and spleen are normal in size and enhancement. Gallbladder is unremarkable. Biliary system is non dilated. Pancreas enhances normally. No adrenal nodules. Kidneys are normal in size and enhancement, without hydronephrosis. There is thickening and inflammatory change surrounding the descending and sigmoid colon. Very minimal diverticula are identified. There is no free air or free fluid. Mild No free fluid or air. No retroperitoneal or mesenteric adenopathy. No ventral hernias. No suspicious bony abnormalities. No vertebral body compression fractures. Abdominal aorta: There no areas of hemodynamically significant stenosis, vascular occlusion or aneurysmal dilation. Mesenteric arteries: The superior and inferior mesenteric arteries are patent without gross evidence of occlusion within the visualized portions. It is noted that the presence of opacification within the distalmost branches is equivocal throughout the colon. Renal arteries: Renal arteries are patent without hemodynamically significant stenosis. IMPRESSION: 1. Thickening and inflammatory change within the sigmoid and descending colon as described above. Appearance is suggestive of colitis, possibly secondary to diverticulitis. Other etiologies such as inflammatory/infectious/ischemic colitis cannot be definitively excluded. As noted above, the superior inferior mesenteric arteries appear patent. There is opacification identified throughout the colon. Visualized opacification of punctate distal branches are not well visualized throughout the abdomen, likely secondary to small size. Small areas of distalmost occlusion cannot be definitively excluded. Dictated by: Gina Branham M.D. on 11/03/2016 at 19:19 Cardiac Echo Impressions Interpretation Summary 1) Normal left ventricular size, thickness, and systolic function (EF 65- 70%). 2) Distal anterior wall appears to have subtle hypokinesis. 3) No significant valvular disease. 4) No prior Echo available for comparison. Assessment & Plan 67-year-old lady hospital history of COPD, IBS, anxiety came to emergency room due to epigastric pain and nausea/vomiting of 8 hours. # Suspected acute diverticulitis/colitis -Patient presented with sudden onset abdominal pain. Initial lactate was elevated at 5.1. Resolved quickly. CT abdomen with contrast done due to concern for ischemic bowel. CT shows suspected acute colitis/diverticulitis. Surgery evaluated and recommended nonoperative management of diverticulitis. -Initially started on heparin drip due to concern of ischemic bowel pending CT angiogram. Discontinued today. -Received IV fluid NS 2L bolus , continue with 75ml/h -Initially started on Zosyn 11/03. Switched to ciprofloxacin and Flagyl -May need colonoscopy outpatient -GI and surgery consulted. Appreciate their time and expertise # Intractable nausea and vomiting -due to above versus gastroparesis -zodran prn,morphine prn #Epigastric/chest pain -due to above -ACS unlikely given echo and negative trops,cocaine vasospasm possible .serial trops .PE ruled out -avoid BB,ASA given en route to ED,ativan prn for anxiety -pain control with morphine # suspected pneumonia -patient has chronic cough without recent worsening ,wbc mildly elevated,CT chest shows atypical pneumonia, initially started with ceftriaxone and azithromycin .switched to Zosyn for colitis # history of COPD -c/w Spiriva and duneb prn # suspected substance abuse -ED utox positive for marijuana and cocaine . Patient denies using any cocaine. she states her neighbor uses it but she does not . -Repeat drug screen negative for cocaine Inpatient full code Discharge in 1-2 days on oral antibiotics Resuscitation Status: CPR: Attempt Resuscitation copies to: Arlene Hare MD, Melaku MD Nov 04, 2016 14:02
--- NOTE | 2016-11-04 16:26 | NUR ---
Pain/mobility/nausea Pt reports occasional abd spasm, "it is my chrones, I need to eat" Had 1 small BM today. Only 1 episode of retching, with activity, no rx required. Indep amb to [facility]. Plan to have stess stest in am. No caffiene No am BP medication Plan to come around 0830 to inject med then take for scans around 0930. Pt notified, stated understanding.
--- NOTE | 2016-11-04 18:28 | PROG NOTE ---
[address] [address] PROGRESS NOTE PATIENT: RACHEL OBANDO : 1955 MR#: [id number] ADMIT: 11/03/2016 JOB ID: [id number] CARDIOLOGY CONSULTATION PROGRESS NOTE -- FOLLOW-UP INPATIENT EVALUATION: DATE OF CONSULTATION: Friday, November 04, 2016 CONSULTING PHYSICIAN: Cardiology--Pedro Gayle MD HOSPITAL COURSE AND INTERIM SUMMARY: Hospital day two. I reviewed the details on this 61-year-old woman; and discussed with the Hospitalist Service, Dr. Venegas, in followup to the initial emergent cardiology consultation yesterday. Initially, we were asked if this patient had acute coronary syndrome with STEMI when she she presented acutely ill and initially appeared very uncomfortable. In summary: The initial evaluation did not indicate STEMI; and we deferred emergent cardiac catheterization. The initial evaluation suggested no acute cardiac problem in as much as ECG was unchanged from previously and had no definite ST elevation. Echocardiogram showed no wall motion defects. Her clinical evaluation suggested abdominal pain, and an abdominal problem. I note in follow-up that she has improved while in the hospital: The evaluation in fact began to focus more on abdominal problems involving GI consultation, Surgery consultation, and abdominal CT. Diagnoses of colitis and diverticulitis were considered; and even mesenteric ischemia because of elevated lactate of 5, although this was elevated only transiently. CT abdomen did in fact show suggestive findings of sigmoid and descending colon thickening consistent with diverticulitis. From a cardiac point of view, her troponins remained negative. ASSESSMENT AND RECOMMENDATION: Overall, her clinical course confirms the initial impression of no active cardiac disease; and instead likely abdominal disease. At the same time, an exact diagnosis has been difficult to pin down. As we discussed today, despite the low likelihood of a cardiac problem, agree with plan for ongoing monitoring in that regard for any clinically evident problem. Also as we discussed, we noted a subtle area of possible apical hypokinesis on the echocardiogram. --Suggest myocardial perfusion scan (treadmill or pharmacologic) when she is stable, but prior to discharge to make sure there is no otherwise concomitant coronary disease(which seems very unlikely). Otherwise long-term follow-up can focus on risk factor assessment and risk factor modification including especially cessation of cigarette smoking. Also note there is a question of cocaine involvement initially but ultimately UTox was negative. Please re-consult for followup after myocardial perfusion scan is accomplished. For completeness for "serial ECGs", recommend a followup ECG. FOLLOW-UP NOTE: Saturday, November 05, [address] Goldstein today: I understand she is better; and GI evaluatrion is ongoing with Endoscopy planned. MPS-- She was able to do maximal treadmill exercise; and I am told no ECG changes. I reviewed the MPS images with radiologist; and they are normal, including no ischemia, or scar; and with normal EF; no WMA. REC: No evident cardiac problem identified currently. Please confirm with final MPS report. Please reconsult Cardiology if any further questions. Recommend ongoing follow-up per your plan. JOSY Rasmussen
[2016-11-04] MEDS: LORazepam 1 mg Tablet PO PRN (20:54)
[2016-11-05 01:54] VITALS: BP 133/84; PULSE 76; RESP 14; O2SAT 95
[2016-11-05] MEDS: 0.9% Sodium Chloride 1,000 ML IV SCH ×2 (02:15→10:31)
[2016-11-05 06:30] VITALS: BP 131/83; PULSE 80; RESP 17; O2SAT 98
--- NOTE | 2016-11-05 06:33 | NUR ---
NPO Pt NPO at midnight.
[2016-11-05] MEDS: metroNIDAZOLE Inj 500 MG in IV Premix 1 EACH IV SCH ×2 (07:26→20:40)
[2016-11-05 07:30] VITALS: BP 138/78; PULSE 81; RESP 20; O2SAT 96
--- NOTE | 2016-11-05 09:11 | NUR ---
Stress test 0730 staff came and injected for upcoming stress test 0754 pt taken in w/ch to stress test, vehicle monitor technician notified.
[2016-11-05 10:10] VITALS: PULSE 76
[2016-11-05] MEDS: Levofloxacin 750 mg/150 mL D5W IV SCH (10:31)
[2016-11-05 10:47] LABS: BASOPHILS % (AUTO) 0.3 % (0-3); EOSINOPHILS % (AUTO) 0.8 % (0-5); MONOCYTES % (AUTO) 7.8 % (4-12); Mean Corpuscular Hemoglobin 28.6 pg (27.0-35.0); Mean Corpuscular Volume 85.6 fL (81-100); NEUTROPHILS % (AUTO) 74.3 % (40-74); Platelet Count 211 bil/L (150-400)
--- NOTE | 2016-11-05 11:22 | NUR ---
Stress test/endoscopy Pt returned from stress test, tele replaced. Notified by that pt having endoscopy later today and to have pt remain NPO. Called nuc med, had already eaten 2 bites of muffin, notified endo. Endo scheduled procedure 11/06 at 0830, will p/up around 0800. Pt notified.
--- NOTE | 2016-11-05 12:24 | DRSVH ---
PROCEDURE: 1 DAY TREADMILL STRESS TEST Rest and exercise myocardial perfusion SPECT with gated imaging and ejection fraction RADIOPHARMACEUTICAL: 8.8 mCi Tc-99m tetrafosmin IV at rest and 26.6 mCi Tc-99m tetrafosmin IV at peak exercise. [id number] was performed. INDICATIONS: 61 year-old woman with chest pain. Patient has smoking as risk factor for coronary arlin ry disease. TECHNIQUE: Radiopharmaceutical was injected at peak stress test, and also at rest. SPECT images wer e obtained. SPECT myocardial perfusion images were displayed in short axis, horizontal long axis, an d vertical long axis views. Gated images were reviewed using [employer] software. COMPARISON: None. CARDIAC STRESS: A standard Cristiano treadmill exercise tolerance test was performed by the patient under the supervision of an attending staff. The patient exercised for 8 minutes and 41 seconds; functional aerobic impai rment (LISHA) is -27 %. Hemodynamic data: There is normal blood pressure and heart rate response to exercise stress. Patien t achieved 97% of maximum predicted heart rate at peak exercise. Symptoms: Patient denied chest pain during exercise. EKG: No diagnostic EKG changes of ischemia; no ectopy. FINDINGS: Raw data: There is good myocardial labeling by radiotracer. No significant motion artifacts. Left ventricle function: Gated images demonstrate normal left ventricle wall thickening. No segment al wall motion abnormality. No transient ischemic dilation. The left ventricle resting end-diastoli c volume is normal. Left ventricle stress ejection fraction is greater than 70%; normal values are a gregory 45%. Myocardial perfusion: There is normal distribution of activity in the left and right ventricular stella cardium. No fixed or reversible perfusion defects. IMPRESSION: 1. Normal myocardial perfusion images. 2. Normal left ventricular volume and systolic function. 3. Good exercise capacity. No chest pain or diagnostic EKG changes for ischemia. PQRS ATTESTATIONS: Measure 322 - Is this imaging test primarily performed on a low-risk surgery patient for preoperative evaluation within 30 days preceding their low-risk non-cardiac surgery? Low-risk surgery is defined as cardiac or myocardial infarction less than 1%, including (but not limited to) endoscopic pr ocedures, superficial procedures, cataract surgery, and excisional breast surgery: Answer: No Measure 323 - Is this imaging test performed primarily for the monitoring of an asymptomatic patient who had percutaneous coronary intervention on the visit date or within 2 years of the visit date? An swer: No Measure 324 - Is this imaging test performed primarily for the initial detection and risk assessment on an asymptomatic, low coronary heart disease patient? Low CHD risk definition = clinicians should consider the maximum number of available patient factors used to estimate risk based on [place] (A TP III criteria), typically age, gender, diabetes, smoking status, and use of blood pressure medicati on, and integrate age appropriate estimates for missing elements, such as LDL or standard blood press ure. Answer: No Dictated by: Ronnell Cadena M.D. on 11/05/2016 at 12:17 Approved by: Ronnell Cadena M.D. on 11/05/2016 at 12:22
--- NOTE | 2016-11-05 16:00 | PCM.PNMED ---
Subjective Date of Service Nov 05, 2016 Subjective Abdominal pain resolved. Nausea and vomiting improved. Underwent stress test due to initial chest pain. Stress test negative. Exam Vital Signs Vital Sign - Last Date Time Temp Pulse Resp B/P Pulse Ox O2 Delivery O2 Flow Rate FiO2 11/05/16 10:10 76 11/05/16 07:30 37.0 20 138/78 96 Room Air 11/03/16 12:37 3 Intake and Output 11/04/16 11/04/16 11/05/16 Cumulative From/Thru 15:00 23:00 07:00 11/03/16 11:21 - 11/05/16 06:32 Intake Total 1944 ml 1504 ml 7206 ml Output Total 600 ml 900 ml 2700 ml Balance 1344 ml 604 ml 4506 ml Intake Oral 600 ml 475 ml 1575 ml IV Total 1344 ml 1029 ml 5631 ml Output Urine Total 600 ml 900 ml 2700 ml # Voids 4 4 # Bowel Movements 1 1 Exam Gen. patient is having dry heaves HEENT: Head is normocephalic atraumatic, Pupils equal and reactive, extraocular movements intact, Lungs clear to auscultation bilaterally Heart regular rate and rhythm without murmurs gallops or rubs Abdomen soft , mild epigastric tenderness without hepatosplenomegaly Extremities pulses are present dorsalis pedis posterior tibialis and radial. tSkin is warm and dry there are no rashes, Psych alert and oriented to person place and time Neuro cranial nerves II through XII are grossly intact Lymph: There is no lymphadenopathy appreciated in the cervical supra infraclavicular regions : no boo IVs and Medications Medications Reviewed: Medications were reviewed in detail Lab and Diagnostics Result Diagram: 11/05/16 1035 11/05/16 1035 X-Rays, CTs and MRIs PROCEDURE: CT ANGIO CHEST PULMONARY EMBOLISM ([id number]) INDICATIONS: chest pain elevated ddimer IMPRESSION: 1. No pulmonary emboli. 2. Tree in bud nodularity within the right middle lobe and right upper lobe is suspicious for pneumonia. This appearance often is seen in the setting of an atypical pneumonia, such as Mycobacterium avium complex and clinical correlation is recommended. 3. Small hiatal hernia with corresponding prominence of the wall of the esophagus. This probably is related to chronic reflux esophagitis. 4. Mild pulmonary consolidation within the right middle lobe and lingula is felt to represent atelectasis. However, six-month followup CT of the chest is recommended. 5. Chronic appearing compression deformities of the thoracic and lumbar spine. Dictated by: Bryant Kaminski M.D. on 11/03/2016 at 12:41 PROCEDURE: ANGIO ABD/PELVIS W/CON INDICATIONS: suspected ischemic bowel TECHNIQUE: After the administration of intravenous contrast, 2 and 5 mm sections acquired from the diaphragm to the iliac crests. 3-dimensional maximum intensity projection (MIP) coronal and sagittal reformats, and/or 3-dimensional volume rendering reformatting was then performed. For radiation dose reduction, the following was used: automated exposure control. COMPARISON: [facility], CT, ABD/PELVIS W/CON (PNL), 05/24/2014, 8: 01. [facility], CT, ABD/PELVIS W/CON (PNL), 10/30/2014, 13:27. FINDINGS: Image quality: Excellent. Extravascular tissues: There is a partial as appearance of nodularity within the right middle lobe, better appreciated on CT chest dated 11/03/16. Heart size is normal. Liver and spleen are normal in size and enhancement. Gallbladder is unremarkable. Biliary system is non dilated. Pancreas enhances normally. No adrenal nodules. Kidneys are normal in size and enhancement, without hydronephrosis. There is thickening and inflammatory change surrounding the descending and sigmoid colon. Very minimal diverticula are identified. There is no free air or free fluid. Mild No free fluid or air. No retroperitoneal or mesenteric adenopathy. No ventral hernias. No suspicious bony abnormalities. No vertebral body compression fractures. Abdominal aorta: There no areas of hemodynamically significant stenosis, vascular occlusion or aneurysmal dilation. Mesenteric arteries: The superior and inferior mesenteric arteries are patent without gross evidence of occlusion within the visualized portions. It is noted that the presence of opacification within the distalmost branches is equivocal throughout the colon. Renal arteries: Renal arteries are patent without hemodynamically significant stenosis. IMPRESSION: 1. Thickening and inflammatory change within the sigmoid and descending colon as described above. Appearance is suggestive of colitis, possibly secondary to diverticulitis. Other etiologies such as inflammatory/infectious/ischemic colitis cannot be definitively excluded. As noted above, the superior inferior mesenteric arteries appear patent. There is opacification identified throughout the colon. Visualized opacification of punctate distal branches are not well visualized throughout the abdomen, likely secondary to small size. Small areas of distalmost occlusion cannot be definitively excluded. Dictated by: Gina Branham M.D. on 11/03/2016 at 19:19 Cardiac Echo Impressions Interpretation Summary 1) Normal left ventricular size, thickness, and systolic function (EF 65- 70%). 2) Distal anterior wall appears to have subtle hypokinesis. 3) No significant valvular disease. 4) No prior Echo available for comparison. Assessment & Plan 67-year-old lady hospital history of COPD, IBS, anxiety came to emergency room due to epigastric pain and nausea/vomiting of 8 hours. # Suspected acute diverticulitis/colitis -Patient presented with sudden onset abdominal pain. Initial lactate was elevated at 5.1. Resolved quickly. CT abdomen with contrast done due to concern for ischemic bowel. CT shows suspected acute colitis/diverticulitis. Surgery evaluated and recommended nonoperative management of diverticulitis. -Initially started on heparin drip due to concern of ischemic bowel pending CT angiogram. Discontinued 11/04 -Received IV fluid NS 2L bolus , continue with 75ml/h -Initially started on Zosyn 11/03. Switched to ciprofloxacin and Flagyl -May need colonoscopy outpatient -GI and surgery consulted. Appreciate their time and expertise -Colonoscopy outpatient # nausea and vomiting, resolved -due to above versus gastroparesis versus others -Endoscopy planned for tomorrow -zodran prn,morphine prn -Protonix empirically #Epigastric/chest pain -due to above -ACS unlikely given echo and negative trops,cocaine vasospasm possible .serial trops .PE ruled out -Stress test 11/05 negative -pain control with morphine # Initiated suspected pneumonia:ruled out -patient has chronic cough without recent worsening ,wbc mildly elevated,CT chest shows atypical pneumonia, initially started with ceftriaxone and azithromycin .switched to Zosyn for colitis # history of COPD -c/w Spiriva and duneb prn # suspected substance abuse -ED utox positive for marijuana and cocaine . Patient denies using any cocaine. she states her neighbor uses it but she does not . -Repeat drug screen negative for cocaine Inpatient full code Discharge in 1-2 days on oral antibiotics Resuscitation Status: CPR: Attempt Resuscitation Triston Venegas MD Nov 05, 2016 16:00
[2016-11-05 16:01] VITALS: BP 132/83; PULSE 79; RESP 18; O2SAT 97
--- NOTE | 2016-11-05 16:09 | NUR ---
Pain abdominal pain reported "better since BM and ability to eat" c/o headache, request made to MD for tylenol, awaiting new order.
[2016-11-05] MEDS: Pantoprazole 20 mg ER24 Tablet PO SCH (16:26)
--- NOTE | 2016-11-05 19:33 | PCM.PNMED ---
Subjective Date of Service Nov 05, 2016 Subjective Pt denies any abd pain and now tolerating diet today. She has no more nausea vomiting today. Exam Vital Signs Vital Sign - Last Date Time Temp Pulse Resp B/P Pulse Ox O2 Delivery O2 Flow Rate FiO2 11/05/16 16:01 36.9 79 18 132/83 97 Room Air 11/03/16 12:37 3 Intake and Output 11/04/16 11/04/16 11/05/16 Cumulative From/Thru 15:00 23:00 07:00 11/03/16 11:21 - 11/05/16 06:32 Intake Total 1944 ml 1504 ml 7206 ml Output Total 600 ml 900 ml 2700 ml Balance 1344 ml 604 ml 4506 ml Intake Oral 600 ml 475 ml 1575 ml IV Total 1344 ml 1029 ml 5631 ml Output Urine Total 600 ml 900 ml 2700 ml # Voids 4 4 # Bowel Movements 1 1 Exam Pt is alert oriented and comfortable HEENT no icterus Lungs clear but some decreased breath sounds Cardiovascular regular rate and rhythm normal S1-S2 Abdomen soft mildly distended nontender normal active bowel sounds Extremities no pedal edema of the Ankles Lab and Diagnostics Result Diagram: 11/05/16 1035 11/05/16 1035 X-Rays, CTs and MRIs PROCEDURE: CT ANGIO CHEST PULMONARY EMBOLISM ([id number]) INDICATIONS: chest pain elevated ddimer IMPRESSION: 1. No pulmonary emboli. 2. Tree in bud nodularity within the right middle lobe and right upper lobe is suspicious for pneumonia. This appearance often is seen in the setting of an atypical pneumonia, such as Mycobacterium avium complex and clinical correlation is recommended. 3. Small hiatal hernia with corresponding prominence of the wall of the esophagus. This probably is related to chronic reflux esophagitis. 4. Mild pulmonary consolidation within the right middle lobe and lingula is felt to represent atelectasis. However, six-month followup CT of the chest is recommended. 5. Chronic appearing compression deformities of the thoracic and lumbar spine. Dictated by: Bryant Kaminski M.D. on 11/03/2016 at 12:41 PROCEDURE: ANGIO ABD/PELVIS W/CON INDICATIONS: suspected ischemic bowel TECHNIQUE: After the administration of intravenous contrast, 2 and 5 mm sections acquired from the diaphragm to the iliac crests. 3-dimensional maximum intensity projection (MIP) coronal and sagittal reformats, and/or 3-dimensional volume rendering reformatting was then performed. For radiation dose reduction, the following was used: automated exposure control. COMPARISON: [facility], CT, ABD/PELVIS W/CON (PNL), 05/24/2014, 8: 01. [facility], CT, ABD/PELVIS W/CON (PNL), 10/30/2014, 13:27. FINDINGS: Image quality: Excellent. Extravascular tissues: There is a partial as appearance of nodularity within the right middle lobe, better appreciated on CT chest dated 11/03/16. Heart size is normal. Liver and spleen are normal in size and enhancement. Gallbladder is unremarkable. Biliary system is non dilated. Pancreas enhances normally. No adrenal nodules. Kidneys are normal in size and enhancement, without hydronephrosis. There is thickening and inflammatory change surrounding the descending and sigmoid colon. Very minimal diverticula are identified. There is no free air or free fluid. Mild No free fluid or air. No retroperitoneal or mesenteric adenopathy. No ventral hernias. No suspicious bony abnormalities. No vertebral body compression fractures. Abdominal aorta: There no areas of hemodynamically significant stenosis, vascular occlusion or aneurysmal dilation. Mesenteric arteries: The superior and inferior mesenteric arteries are patent without gross evidence of occlusion within the visualized portions. It is noted that the presence of opacification within the distalmost branches is equivocal throughout the colon. Renal arteries: Renal arteries are patent without hemodynamically significant stenosis. IMPRESSION: 1. Thickening and inflammatory change within the sigmoid and descending colon as described above. Appearance is suggestive of colitis, possibly secondary to diverticulitis. Other etiologies such as inflammatory/infectious/ischemic colitis cannot be definitively excluded. As noted above, the superior inferior mesenteric arteries appear patent. There is opacification identified throughout the colon. Visualized opacification of punctate distal branches are not well visualized throughout the abdomen, likely secondary to small size. Small areas of distalmost occlusion cannot be definitively excluded. Dictated by: Gina Branham M.D. on 11/03/2016 at 19:19 Cardiac Echo Impressions Interpretation Summary 1) Normal left ventricular size, thickness, and systolic function (EF 65- 70%). 2) Distal anterior wall appears to have subtle hypokinesis. 3) No significant valvular disease. 4) No prior Echo available for comparison. Assessment & Plan 67-year-old lady hospital history of COPD, IBS, anxiety came to emergency room due to epigastric pain and nausea/vomiting of 8 hours. Stress test negative. Despite the CT finding, she has no abdominal pain. She has no blood in the stools. Recommend finishing the antibiotics for about 10 days. She is tolerating her diet. No epigastric pain noted. No nausea vomiting noted. Etiology of nausea vomiting gastroparesis versus peptic ulcer disease versus gastritis. Because she ate, you are not able to do the EGD. I spoke to the patient. Because she had such a bad nausea vomiting prior to coming in, she would still like to have the EGD done. We will talk to her again tomorrow. Resuscitation Status: CPR: Attempt Resuscitation Chirag Leon MD Nov 05, 2016 19:33
[2016-11-05 20:48] VITALS: BP 130/86; PULSE 72; RESP 18; O2SAT 98
--- NOTE | 2016-11-06 | NUR ---
NPO Pt NPO at midnight
[2016-11-06 05:41] VITALS: BP 108/75; PULSE 67; RESP 18; O2SAT 99
[2016-11-06] MEDS: Pantoprazole 20 mg ER24 Tablet PO SCH (07:19)
[2016-11-06 08:06] VITALS: BP 133/87; PULSE 77; RESP 14; O2SAT 99
--- NOTE | 2016-11-06 08:15 | NUR ---
Pre Endo Pt c/o mild abdominal discomfort, rating at 2/10. Pt denies any nausea. Pt NPO for endoscopy. Pt taken to ENDO for procedure now.
[2016-11-06] MEDS ORDERED: Lactated Ringer's 1,000 ML IV ONE (08:31)
--- NOTE | 2016-11-06 09:01 | PCM.ENDEGD ---
EGD Date of Service: Nov 06, 2016 Physician Chirag leon MD Pre Procedure Diagnosis: Intractable nausea and vomiting Post Procedure Dx & Findings: Gastritis Procedure Esophagogastroduodenoscopy PROCEDURE IN DETAIL: After proper sedation, Olympus video endoscope was inserted into patient's mouth and esophagus was successfully intubated. Scope introduced esophagus. Esophagus showed normal shiny whitish mucosa consistent with squamous cell component. Z line was intact at 40 cm from the incisors. Scope was advanced to the stomach. Stomach appeared overall normal with normal rugae folds however in the antrum some isolated streaks of redness and edema consistent with gastritis. Biopsies obtained.. Cardia fundus body antrum pylorus were all visualized. Retroflexion was done. Stomach was easily inflated and deflatable using air. Scope further advanced to the distal duodenum. Duodenum revealed normal villous structures with normal appearing folds without any mass ulcer erosion. Impression Gastritis Recommendation Advanced diet as tolerated Following GI with Dr. Banda Presedation Assessment Risks and Benefits Informed consent was obtained from the patient after all risks and benefits including but not limited to drug reaction, infection, pain, bleeding, perforation, as well as alternatives were discussed. Patient monitoring Continuous pulse oximetry, cardiac monitoring, blood pressure monitoring, IV access, and oxygen at 2L per nasal cannula. Complications There were no periprocedural complications identified. Post Procedure Plan Post Procedure Recommendations 1. Restrict activities today. 2. Resume normal activities in the morning. 3. Resume medications. 4. GERD behavioral modification: - Avoid fatty, acidic, spicy, large meals - Do not lie down after meals - Do not eat or drink anything for at least 2 1/2 hours before going to bed at night - Discontinue tobacco and alcohol - Decrease or avoid caffeine - Avoid chocolate and mints - Decrease weight - Avoid aspirin and non steroidal anti-inflammatory agents (NSAID) such as Aleve, Advil, Mobic, Naproxen, Ibuprofen, etc 5. Add proton pump inhibitor. Take 30 minutes before 1st meal of the day. 6. Patient informed of normal post procedure side effects as bloating, drowsiness, blood streaking in the stool 7. If gastric biopsy reveal H.pylori, continue with appropriate treatment 8. If small bowel biopsy reveals celiac, continue with appropriate treatment 9. Please don't hesitate to call me with any questions Chirag Leon MD Nov 06, 2016 09:01
[2016-11-06 09:03] VITALS: BP 87/59; PULSE 86; RESP 15; O2SAT 97
[2016-11-06 09:14] VITALS: BP 97/97; PULSE 81; RESP 15; O2SAT 98
--- NOTE | 2016-11-06 09:18 | PCM.HPANE ---
Patient Data Date of Service: Nov 06, 2016 (0800) Surgeon Admitting Provider:Triston Venegas MD Attending Provider:Triston Venegas MD Primary Care Physician:Arlene Hare MD Other Provider: Reason for Visit Chest Pain, Pneumonia Ht/WT & BMI Height (Feet): 5 Height (Inches): 7.00 Weight (Kilograms): 55.400 Body Mass Index 19.00 Allergies Coded Allergies: neomycin (Verified Allergy, Mild, REDDNESS,SWELLING, 10/30/14) Past Anesthesia History Anesthesia History: Denies:: Abnormal Airway, Anesthesia Reactions, Difficult Intubation, Fam Anesthesia Reaction, Fam Malignant Hypertherm, Malignant Hyperthermia Diabetes History Hx Diabetes?: No MRSA MRSA: No Medications Blood Thinner: Aspirin Reported Medications Azelastine HCl 137 Mcg/0.137 Ml [place].pump2 Sprays NOSTRIL DAILY PRN prn #30 11/03/16 Albuterol HFA (Proair HFA)8.5 Gm Hfa.aer.ad2 Puffs INH u9kmobp PRN For Shortness of Breath #8 11/03/16 Umeclidinium [place] (Incruse Ellipta)62.5 Mcg/Actuation Blst.w.dev1 Puff INH DAILY #30 11/03/16 Discontinued Reported Medications Aspirin 325 Mg [id number] Mg PO DAILY PRN For Pain #1 BOTTLE 11/15/15 Tiotropium [place] (Spiriva)18 Mcg Cap.w.dev18 Mcg IH DAILY #1 PKG Ref 0 08/09/14 Albuterol HFA 8.5 Gm Hfa.aer.ad2 Puff IH Q4 PRN For Shortness of Breath #1 INHALER Ref 0 08/09/14 Discontinued Scripts Ondansetron ODT 8 Mg Tab.rapdis8 Mg PO QID PRN For Nausea #16 TABLET Prov:Curt Aguilar MD 04/09/16 Prochlorperazine Maleate (Compro)25 Mg Supp.rect25 Mg RC BID PRN For Nausea #10 SUPP Prov:Curt Aguilar MD 04/09/16 History History of ENT Problems?: No HEENT History: Positive for:: Dysphagia Sinus Problem (allergic rhinitis) Denies:: Abnormal Airway Cataracts Difficult Intubation Glaucoma Hearing Problem Denture Type: Full- Upper Full- Lower Teeth Condition: No Teeth Other HEENT Pertinent History: FULL UPPER AND LOWER DENTURES/NOT WEARING CURRENTLY. Hx of Heart Problems?: No Cardiovascular History: Positive for:: Chest Pain Denies:: Cardiac Surgery Congestive Heart Failure Edema Heart Murmur Hypertension Pacemaker Thrombophlebitis Hx of Respiratory Problem?: Yes Respiratory History: Positive for:: COPD Cough (POST NASAL DRIP) Dyspnea Emphysema Pneumonia Denies:: Asthma Chest Surgery Hemoptysis Tuberculosis Other Resp Pertinent History: DAILY [employer] Hx Neurologic Problems?: No Neurological History: Positive for:: Dizziness Headaches Denies:: Alzheimer's Disease CVA Dementia Parkinson's Disease Seizures Hx of GI Problems?: Yes Hx of Problems?: No Genitourinary History: Denies:: HX of Hemodialysis Kidney Stones Urinary Tract Infection HX of Peritoneal Dialysis: No Female Hx: Denies:: Currently Hx Musculoskeletal Problems?: No Musculoskeletal History: Positive for:: Back Injury Musculoskeletal Trauma (unknown, mumbling) Denies:: Joint Replacement Hx of Psycho/Social Problems?: Yes Psycho Social History: Positive for:: Anxiety Hx Depression Denies:: Bipolar Disorder Suicide Attempt Hx Surgeries?: Yes (D&C) Hx Any Other Health Problems?: Yes History Blood Transfusions: Positive for:: Accept Blood Products? Denies:: Blood Transfuse Reaction Blood Transfusions Hx Diabetes: No Hx Alcohol Use: Yes (years ago)Hx Substance Use: Yes (years ago) Smoking Status: Former Smoker Have You Smoked inLast 12 mo: Yes (quit 1 year ago)Approx How Many Cigarettes/ day: 1 Stop/Bang Treated for Sleep Apnea?: No Do You Have a CPAP Machine?: No S-Snoring: Do You Snore Loudly: No T-Tired: feel tired, fatigued: No O-Obsered: Observed not breath: No P-Blood Pressure: treated: No B- Body Mass Index > 35 kg/m2: No A- Age over 50: Yes N- Neck Large Circumference: No G- Gender Male: No PRABHU Total Score: 1 Risk Assessment Category Category 1A: Patient has history of documented sleep apnea, and HAS NOT received any narcotic, sedative or anesthesia administration during this stay. Category 1B: Patient has history of documented sleep apnea, and HAS received any narcotic , sedative or anesthesia administration during this stay Category 2: Patient has SUSPECTED Obstructive Sleep Apnea, and HAS received any narcotic , sedative or anesthesia administration during this stay. Category 3: Patient has SUSPECTED Obstructive Sleep Apnea and HAS NOT received narcotic, sedative or anesthesia administration during this stay. Category 4: Outpatient in Procedural Areas with known sleep apnea or who screen positive for High Risk via the STOP/BANG questionnaire. Exam Exam Vital Signs Vital Signs Date Time Temp Pulse Resp B/P Pulse Ox O2 Delivery O2 Flow Rate FiO2 11/06/16 09:03 86 15 87/59 97 Room Air 11/06/16 08:06 36.3 77 14 133/87 99 Room Air 11/06/16 05:41 36.5 67 18 108/75 99 Room Air General Appearance: Alert, Oriented X3, Cooperative, No Acute Distress HEENT/AIRWAY: MP 2 Lungs: Clear to Auscultation Heart: Exam Unremarkable Meds/Labs/Diagnostics Admission Meds Current Medications Pantoprazole 20 mg 20 mg DAILYAC PO Last administered on 11/06/16 07:19; Start 11/05/16 at 16:00 Lactated Ringer's (Lr) 1,000 ml @ ud STK-MED ONCE IV Last administered on 11/06 08:31; Start 11/06/16 at 08:31; Stop 11/06/16 at 08:32; Status DC Labs Test 11/03/16 11:25 11/03/16 13:15 11/03/16 15:10 11/03/16 17:10 Prothrombin Time 10.0sec (8.1-12.5) Prothromb Time International Ratio 0.94ratio D-Dimer 1.15mg/L FEU (<0.50) Hemoglobin A1c 5.6% (4.8-5.6) Total Creatine Kinase 82U/L (21-215) Creatine Kinase MB 2.4ng/mL (0.0-5.3) Creatine Kinase MB % % (0.0-5.0) Pro-B-Type Natriuretic Peptide 115.8pg/mL (0-287) Procalcitonin 0.03ng/mL (0.00-0.08) Urine Color Straw (YELLOW) Urine Appearance Hazy (CLEAR,HAZY) Urine pH 8.0 (5.0-8.0) Urine Specific [place] 1.010 (1.003-1.035) Urine Protein Tracemg/dL (NEG,TRACE) Urine Glucose (UA) 250mg/dL (NEGATIVE) Urine Ketones 15mg/dL (NEGATIVE) Urine Occult Blood Negative (NEGATIVE) Urine Nitrite Negative (NEGATIVE) Urine Bilirubin Negative (NEGATIVE) Urine Urobilinogen Normalmg/dL (NORMAL) Urine Leukocyte Esterase Negative (NEGATIVE) Urine RBC 0-2/hpf (0-2) Urine WBC 0-5/hpf (0-5) Urine Epithelial Cells Occasional/hpf (NONE-MOD) Urine Crystals Amorphous phosphates Urine Bacteria Moderate/hpf (NONE-FEW) Urine Hyaline Casts None/lpf (NONE) Urine Granular Casts None seen (NONE SEEN) Urine Waxy Casts None seen (NONE SEEN) Urine Red Blood Cell Casts None seen (NONE SEEN) Urine White Blood Cell Casts None seen (NONE SEEN) Urine Mucus None seen (None Seen) Urine Trichomonas None seen (NONE SEEN) Urine Yeast None (NONE SEEN) Urinalysis Comment None Urine Culture Reflexed Indicated Urine Opiates Screen Negative Urine Methadone Screen Negative Urine Barbiturates Screen Negative Urine Amphetamines Screen Negative Urine Benzodiazepines Screen Negative Urine Cocaine Metabolite Screen Negative Urine Cannabinoids Screen Positive Troponin T < 0.010ug/L (0.0-0.011) Test 11/04/16 00:00 11/04/16 06:10 11/05/16 10:35 Hold Blue Top Tube Received (Received) Activated Partial Thromboplast Time 50.7sec (22.8-33.0) Lactic Acid Level 0.7mmol/L (0.4-2.0) Magnesium Level 1.8mg/dL (1.6-2.6) White Blood Count 7.3th/mm3 (3.8-10.1) Red Blood Count 4.65mil/mm3 (3.90-5.20) Hemoglobin 13.3g/dL (12.0-15.6) Hematocrit 39.8% (35.0-46.0) Mean Corpuscular Volume 85.6fL (81-100) Mean Corpuscular Hemoglobin 28.6pg (27.0-35.0) Mean Corpuscular Hemoglobin Concent 33.4% (32.0-37.0) Red Cell Distribution Width 13.9% (12.3-15.4) Platelet Count 211bil/L (150-400) Neutrophils (%) (Auto) 74.3% (40-74) Lymphocytes (%) (Auto) 16.1% (14-46) Monocytes (%) (Auto) 7.8% (4-12) Eosinophils (%) (Auto) 0.8% (0-5) Basophils (%) (Auto) 0.3% (0-3) Sodium Level 141mEq/L (134-144) Potassium Level 3.5mEq/L (3.5-5.2) Chloride Level 103mEq/L (97-108) Carbon Dioxide Level 21mmol/L (18-29) Blood Urea Nitrogen 9mg/dL (8-27) Creatinine 0.74mg/dL (0.57-1.00) Estimat Glomerular Filtration Rate 114mL/min (>59) Glucose Level 125mg/dL (60-99) Calcium Level 9.3mg/dL (8.5-10.1) Total Bilirubin 1.1mg/dL (0.0-1.2) Aspartate Amino Transf (AST/SGOT) 34U/L (0-50) Alanine Aminotransferase (ALT/SGPT) 34U/L (0-32) Alkaline Phosphatase 68U/L (25-165) Total Protein 7.0g/dL (6.4-8.4) Albumin 4.1g/dL (3.4-5.0) Thyroid Stimulating Hormone (TSH) 2.010uIU/mL (0.450-4.500) Plan Impression Patient chart reviewed, patient interviewed and anesthestic plan with risks, benefits, and alternatives discussed, and informed consent obtained. ASA Physical Status: ASA3 Severe Disease Anesthetic Plan: MAC Bene/Risks/Altern/Consents: Yes HP Complete Prior to Induction: Yes Alonso Paige MD Nov 06, 2016 09:18
--- NOTE | 2016-11-06 09:19 | PCM.ANEP1 ---
Post Anesthesia PACU Phase 1 Assessment Vital Signs Vital Signs Date Time Temp Pulse Resp B/P Pulse Ox O2 Delivery O2 Flow Rate FiO2 11/06/16 09:03 86 15 87/59 97 Room Air 11/06/16 08:06 36.3 77 14 133/87 99 Room Air 11/06/16 05:41 36.5 67 18 108/75 99 Room Air Anesthetic Administered: MAC Level of Alertness: Sleepy, easy to arouse Pain: No Nausea or Vomiting: No CV Function & Hydration Stable: Yes Airway Device: Lungs: Clear to Auscultation Dermatome Level: Full Sensation PACU Phase 2 Assessment Complications: No Patient Instructions Provided: N/A Alonso Paige MD Nov 06, 2016 09:19
[2016-11-06 09:25] VITALS: BP 110/70; PULSE 66; RESP 15; O2SAT 95
[2016-11-06] MEDS: metroNIDAZOLE Inj 500 MG in IV Premix 1 EACH IV SCH (10:07)
[2016-11-06] MEDS: Levofloxacin 750 mg/150 mL D5W IV SCH (10:50)
--- NOTE | 2016-11-06 12:25 | PCM.DIMED ---
Discharge Instructions Date of Service Nov 06, 2016 Dates of Hospitalization Nov 03, 2016 at 15:22 Discharge Diagnosis Discharge Diagnosis # Suspected acute diverticulitis/colitis, improved # nausea and vomiting due to gastritis, resolved #Epigastric/chest pain -due to above -ACS ruled out.PE ruled out -Stress test 11/05 negative # Initiated suspected pneumonia:ruled out # history of COPD Diet Discharge Diet: Low fat, Low Sodium, Other (high-fiber) Activity Discharge Activity: Limited until seen by PCP Call your provider Call your provider for: Fever or Chills, Shortness of breath, Bleeding, Chest pain, Vomitting, Excessive diarrhea, Weakness (unilateral) Patient Instructions Patient Instructions You were hospitalized due to epigastric/chest pain and nausea/vomiting. EKG and stress test and negative for heart attack. Endoscopy revealed gastritis. Please continue omeprazole. CT scan shows suspected diverticulitis/colitis. You have been treated with IV antibiotics. Please continue ciprofloxacin and Flagyl for 5 more days. You will need colonoscopy in 6-8 weeks. Please follow- up with Dr Jaeger in 3 weeks . GI recommendation for acid reflux GERD behavioral modification: - Avoid fatty, acidic, spicy, large meals - Do not lie down after meals - Do not eat or drink anything for at least 2 1/2 hours before going to bed at night - Discontinue tobacco and alcohol - Decrease or avoid caffeine - Avoid chocolate and mints - Decrease weight - Avoid aspirin and non steroidal anti-inflammatory agents (NSAID) such as Aleve, Advil, Mobic, Naproxen, Ibuprofen, etc Follow-up Provider: Arlene Hare MD Follow-up with PCP in: 1 week Provider: Lina Jaeger MD Follow-up in: 3 weeks Triston Venegas MD Nov 06, 2016 12:25
[2016-11-06] MEDS ORDERED: OMEP20CA11 PO (12:26)
[2016-11-06] MEDS ORDERED: METR500T19 PO (12:26)
[2016-11-06] MEDS ORDERED: CIPR-198 PO (12:26)
--- NOTE | 2016-11-06 12:44 | PCM.DC.MED ---
Discharge Summary Date of Service Nov 06, 2016 Dates of Hospitalization Date of Hospital Admission Nov 03, 2016 at 15:22 Date of Discharge: Nov 06, 2016 Providers: Admitting Physician: Triston Soni MD Primary Care Physician: Arlene Hare MD Attending Physician: Triston Soni MD Diagnosis at Time of Discharge Diagnosis at Time of Discharge # Suspected acute diverticulitis/colitis, improved # nausea and vomiting due to gastritis, resolved #Epigastric/chest pain -due to above -ACS ruled out.PE ruled out -Stress test 11/05 negative # Initiated suspected pneumonia:ruled out # history of COPD Consultations GI Dr Leon Surgery Cardiology Procedures XRay, CTs & MRIs PROCEDURE: CT ANGIO CHEST PULMONARY EMBOLISM ([id number]) INDICATIONS: chest pain elevated ddimer IMPRESSION: 1. No pulmonary emboli. 2. Tree in bud nodularity within the right middle lobe and right upper lobe is suspicious for pneumonia. This appearance often is seen in the setting of an atypical pneumonia, such as Mycobacterium avium complex and clinical correlation is recommended. 3. Small hiatal hernia with corresponding prominence of the wall of the esophagus. This probably is related to chronic reflux esophagitis. 4. Mild pulmonary consolidation within the right middle lobe and lingula is felt to represent atelectasis. However, six-month followup CT of the chest is recommended. 5. Chronic appearing compression deformities of the thoracic and lumbar spine. Dictated by: Bryant Kaminski M.D. on 11/03/2016 at 12:41 PROCEDURE: ANGIO ABD/PELVIS W/CON INDICATIONS: suspected ischemic bowel TECHNIQUE: After the administration of intravenous contrast, 2 and 5 mm sections acquired from the diaphragm to the iliac crests. 3-dimensional maximum intensity projection (MIP) coronal and sagittal reformats, and/or 3-dimensional volume rendering reformatting was then performed. For radiation dose reduction, the following was used: automated exposure control. COMPARISON: [facility], CT, ABD/PELVIS W/CON (PNL), 05/24/2014, 8: 01. [facility], CT, ABD/PELVIS W/CON (PNL), 10/30/2014, 13:27. FINDINGS: Image quality: Excellent. Extravascular tissues: There is a partial as appearance of nodularity within the right middle lobe, better appreciated on CT chest dated 11/03/16. Heart size is normal. Liver and spleen are normal in size and enhancement. Gallbladder is unremarkable. Biliary system is non dilated. Pancreas enhances normally. No adrenal nodules. Kidneys are normal in size and enhancement, without hydronephrosis. There is thickening and inflammatory change surrounding the descending and sigmoid colon. Very minimal diverticula are identified. There is no free air or free fluid. Mild No free fluid or air. No retroperitoneal or mesenteric adenopathy. No ventral hernias. No suspicious bony abnormalities. No vertebral body compression fractures. Abdominal aorta: There no areas of hemodynamically significant stenosis, vascular occlusion or aneurysmal dilation. Mesenteric arteries: The superior and inferior mesenteric arteries are patent without gross evidence of occlusion within the visualized portions. It is noted that the presence of opacification within the distalmost branches is equivocal throughout the colon. Renal arteries: Renal arteries are patent without hemodynamically significant stenosis. IMPRESSION: 1. Thickening and inflammatory change within the sigmoid and descending colon as described above. Appearance is suggestive of colitis, possibly secondary to diverticulitis. Other etiologies such as inflammatory/infectious/ischemic colitis cannot be definitively excluded. As noted above, the superior inferior mesenteric arteries appear patent. There is opacification identified throughout the colon. Visualized opacification of punctate distal branches are not well visualized throughout the abdomen, likely secondary to small size. Small areas of distalmost occlusion cannot be definitively excluded. Dictated by: Gina Branham M.D. on 11/03/2016 at 19:19 Cardiac Echo Impression Interpretation Summary 1) Normal left ventricular size, thickness, and systolic function (EF 65- 70%). 2) Distal anterior wall appears to have subtle hypokinesis. 3) No significant valvular disease. 4) No prior Echo available for comparison. Invasive Procedures Endoscopy 11/06 gastritis Other Diagnostics Stress test 11/05 negative Brief History per HPI 67-year-old lady hospital history of COPD, IBS, anxiety came to emergency room due to epigastric pain and nausea/vomiting of 8 hours. Patient states she started to have sudden onset epigastric pain this morning. Pain is dull aching,4/10, intermittent. She then developed nausea and repeated episodes of dry heaves. She also had an episode of vomiting of bilious matter. She states she has on and off dry cough, denies recent worsening. Denies any fever. Admits to occasional marijuana use but denies cocaine use. Urine tox positive for marijuana and cocaine in ER Denies diaphoresis. EMS was called and noted JORGE on inferior leads and activated STEMI code. ER course: EKG with some ST elevation on inferior leads but not much changed from baseline. Troponin negative. Start echo obtained and Dr Marinelli evaluated, no gross wall motion abnormality seen Urine tox positive for marijuana on and cocaine D-dimer is elevated and CTA obtained, negative for PE but shows consolidation on right upper and meddle lobe . wbc 12.7 Ceftriaxone and azithromycin initiated .GI cocktail given with some relief of epigastric pain and admission requested. Hospital Course 67-year-old lady hospital history of COPD, IBS, anxiety came to emergency room due to epigastric pain and nausea/vomiting of 8 hours. # Suspected acute diverticulitis/colitis -Patient presented with sudden onset abdominal pain. Initial lactate was elevated at 5.1. Resolved quickly. CT abdomen with contrast done due to concern for ischemic bowel. CT shows suspected acute colitis/diverticulitis. Surgery evaluated and recommended nonoperative management of diverticulitis. -Initially started on heparin drip due to concern of ischemic bowel pending CT angiogram. Discontinued 11/04 -Received IV fluid NS 2L bolus , -Initially started on Zosyn 11/03. Switched to ciprofloxacin and Flagyl.discharge on cipro and flagyl for 5 more days . - colonoscopy 6-8 weeks outpatient -GI and surgery consulted. Appreciate their time and expertise -Follow-up with in 3-4 weeks # nausea and vomiting, resolved -due to gastritis -Endoscopy 11/06. shows Gastritis -Omeprazole 20 mg bid #Epigastric/chest pain, resolved -due to above -ACS unlikely given echo and negative trops, stress test negative. .PE ruled out -Stress test 11/05 negative # Initiated suspected pneumonia:ruled out -patient has chronic cough without recent worsening ,wbc mildly elevated,CT chest shows atypical pneumonia, initially started with ceftriaxone and azithromycin .switched to Zosyn for colitis # history of COPD -c/w Spiriva and duneb prn # suspected substance abuse -ED utox positive for marijuana and cocaine . Patient denies using any cocaine. she states her neighbor uses it but she does not . -Repeat drug screen negative for cocaine Discharge home Condition on discharge stable Exam Vital Signs (Last) Date Time Temp Pulse Resp B/P Pulse Ox O2 Delivery O2 Flow Rate FiO2 11/06/16 09:25 66 15 110/70 95 Room Air 11/06/16 08:06 36.3 11/03/16 12:37 3 Exam Pt is alert oriented and comfortable HEENT no icterus Lungs clear but some decreased breath sounds Cardiovascular regular rate and rhythm normal S1-S2 Abdomen soft , nontender normal active bowel sounds Extremities no pedal edema of the Ankles Test 11/03/16 11:25 11/03/16 13:15 11/03/16 15:10 11/03/16 17:10 Prothrombin Time 10.0sec (8.1-12.5) Prothromb Time International Ratio 0.94ratio D-Dimer 1.15mg/L FEU (<0.50) Hemoglobin A1c 5.6% (4.8-5.6) Total Creatine Kinase 82U/L (21-215) Creatine Kinase MB 2.4ng/mL (0.0-5.3) Creatine Kinase MB % % (0.0-5.0) Pro-B-Type Natriuretic Peptide 115.8pg/mL (0-287) Procalcitonin 0.03ng/mL (0.00-0.08) Urine Color Straw (YELLOW) Urine Appearance Hazy (CLEAR,HAZY) Urine pH 8.0 (5.0-8.0) Urine Specific [place] 1.010 (1.003-1.035) Urine Protein Tracemg/dL (NEG,TRACE) Urine Glucose (UA) 250mg/dL (NEGATIVE) Urine Ketones 15mg/dL (NEGATIVE) Urine Occult Blood Negative (NEGATIVE) Urine Nitrite Negative (NEGATIVE) Urine Bilirubin Negative (NEGATIVE) Urine Urobilinogen Normalmg/dL (NORMAL) Urine Leukocyte Esterase Negative (NEGATIVE) Urine RBC 0-2/hpf (0-2) Urine WBC 0-5/hpf (0-5) Urine Epithelial Cells Occasional/hpf (NONE-MOD) Urine Crystals Amorphous phosphates Urine Bacteria Moderate/hpf (NONE-FEW) Urine Hyaline Casts None/lpf (NONE) Urine Granular Casts None seen (NONE SEEN) Urine Waxy Casts None seen (NONE SEEN) Urine Red Blood Cell Casts None seen (NONE SEEN) Urine White Blood Cell Casts None seen (NONE SEEN) Urine Mucus None seen (None Seen) Urine Trichomonas None seen (NONE SEEN) Urine Yeast None (NONE SEEN) Urinalysis Comment None Urine Culture Reflexed Indicated Urine Opiates Screen Negative Urine Methadone Screen Negative Urine Barbiturates Screen Negative Urine Amphetamines Screen Negative Urine Benzodiazepines Screen Negative Urine Cocaine Metabolite Screen Negative Urine Cannabinoids Screen Positive Troponin T < 0.010ug/L (0.0-0.011) Test 11/04/16 00:00 11/04/16 06:10 11/05/16 10:35 Hold Blue Top Tube Received (Received) Activated Partial Thromboplast Time 50.7sec (22.8-33.0) Lactic Acid Level 0.7mmol/L (0.4-2.0) Magnesium Level 1.8mg/dL (1.6-2.6) White Blood Count 7.3th/mm3 (3.8-10.1) Red Blood Count 4.65mil/mm3 (3.90-5.20) Hemoglobin 13.3g/dL (12.0-15.6) Hematocrit 39.8% (35.0-46.0) Mean Corpuscular Volume 85.6fL (81-100) Mean Corpuscular Hemoglobin 28.6pg (27.0-35.0) Mean Corpuscular Hemoglobin Concent 33.4% (32.0-37.0) Red Cell Distribution Width 13.9% (12.3-15.4) Platelet Count 211bil/L (150-400) Neutrophils (%) (Auto) 74.3% (40-74) Lymphocytes (%) (Auto) 16.1% (14-46) Monocytes (%) (Auto) 7.8% (4-12) Eosinophils (%) (Auto) 0.8% (0-5) Basophils (%) (Auto) 0.3% (0-3) Sodium Level 141mEq/L (134-144) Potassium Level 3.5mEq/L (3.5-5.2) Chloride Level 103mEq/L (97-108) Carbon Dioxide Level 21mmol/L (18-29) Blood Urea Nitrogen 9mg/dL (8-27) Creatinine 0.74mg/dL (0.57-1.00) Estimat Glomerular Filtration Rate 114mL/min (>59) Glucose Level 125mg/dL (60-99) Calcium Level 9.3mg/dL (8.5-10.1) Total Bilirubin 1.1mg/dL (0.0-1.2) Aspartate Amino Transf (AST/SGOT) 34U/L (0-50) Alanine Aminotransferase (ALT/SGPT) 34U/L (0-32) Alkaline Phosphatase 68U/L (25-165) Total Protein 7.0g/dL (6.4-8.4) Albumin 4.1g/dL (3.4-5.0) Thyroid Stimulating Hormone (TSH) 2.010uIU/mL (0.450-4.500) Discharge Medications Discharge Medications Ciprofloxacin (Ciprofloxacin) 500 Mg Tablet 500 MG PO BID Prescribed by: TRISTON SONI MD Metronidazole (Metronidazole) 500 Mg Tablet 500 MG PO BID Prescribed by: TRISTON SONI MD Omeprazole (Omeprazole) 20 Mg Capsule.dr 20 MG PO BID Prescribed by: TRISTON SONI MD Umeclidinium Cypress (Incruse Ellipta) 62.5 Mcg/Actuation Blst.w.dev 1 PUFF INH DAILY (Reported) As needed Albuterol HFA (Proair HFA) 8.5 Gm Hfa.aer.ad 2 PUFFS INH [id number] PRN PRN For Shortness of Breath (Reported) Azelastine HCl (Azelastine HCl) 137 Mcg/0.137 Ml [place].pump 2 SPRAYS NOSTRIL DAILY PRN PRN prn (Reported) Followup Plan Disposition: home Discharge Diet: Low fat, Low Sodium, Other (high-fiber) Discharge Activity: Limited until seen by PCP Patient Instructions You were hospitalized due to epigastric/chest pain and nausea/vomiting. EKG and stress test and negative for heart attack. Endoscopy revealed gastritis. Please continue omeprazole. CT scan shows suspected diverticulitis/colitis. You have been treated with IV antibiotics. Please continue ciprofloxacin and Flagyl for 5 more days. You will need colonoscopy in 6-8 weeks. Please follow- up with Dr Jaeger in 3 weeks . GI recommendation for acid reflux GERD behavioral modification: - Avoid fatty, acidic, spicy, large meals - Do not lie down after meals - Do not eat or drink anything for at least 2 1/2 hours before going to bed at night - Discontinue tobacco and alcohol - Decrease or avoid caffeine - Avoid chocolate and mints - Decrease weight - Avoid aspirin and non steroidal anti-inflammatory agents (NSAID) such as Aleve, Advil, Mobic, Naproxen, Ibuprofen, etc Follow-up Provider: Arlene Hare MD Follow-up with PCP in: 1 week Provider: Lina Jaeger MD Follow-up in: 3 weeks Time spent 35 minutes copies to: Lina Jaeger MD; Chirag Leon MD; Arlene Hare MD, Melaku MD Nov 06, 2016 12:44
--- NOTE | 2016-11-06 13:37 | NUR ---
Discharge Note Pt expressed understanding of all discharge instructions, medications/Rx, and follow up appt. Care Notes provided. Pt ready to discharge home with all belonging, waiting for ride home.
[2016-11-06] MEDS ORDERED: Propofol 10 mg/mL 20 mL Inj ONE (13:39)
--- NOTE | 2016-11-06 13:51 | NUR ---
Social Work- Discharge Data: EMR reviewed. Pt is on day 3 of hospitalization. Pt is medically ready for discharge and discharged today after her stress test. Pt to discharge home with friend to transport via POV. No discharge needs identified. Assessment: Pt who is independent at baseline. Plan: Pt is medically ready for discharge and discharged today after her stress test. Pt to discharge home with friend to transport via POV. No discharge needs identified. FLEICITA Rose
--- NOTE | 2016-11-07 13:00 | PATH ---
SURGICAL PATHOLOGY Attending Physician:Chirag Leon M.D. CASE STATUS: Signed Out PATIENT NAME: RACHEL OBANDO PID: [id number] : 1955 DATE COLLECTED:11/06/2016 15:58 SPECIMEN: Gastric, Biopsy CLINICAL HISTORY: R/O H.PYLORI 1. GASTRIC FINAL DIAGNOSIS: 1.GASTRIC BIOPSY: FRAGMENT OF ANTRAL MUCOSA NEGATIVE FOR SIGNIFICANT INFLAMMATION. Negative for evidence of Helicobacter on H&E stain. Negative for intestinal metaplasia. Negative for dysplasia and malignancy. ICD10 R10.9 GROSS DESCRIPTION: Received in formalin, labeled with the patient' s name and "gastric", is one piece of panda, soft tissue measuring 0.3 x 0.2 x 0.1 cm. Totally submitted in one cassette. [id number] MICRO DESCRIPTION: See diagnosis. ICD-9 CODES: CPT CODES: 1: 67316 Electronically Signed Out Vazquez Finnegan MD [facility] [address], [place] [address] Technical component performed at [facility], [facility] [address], [place], [address]
== END 2016-11-06 13:40 | disposition home or self-care (01) | DRG 392 ==
LOC: EDBD 11:18 → EDUNIT# 11:18 → SED 11:18 → MOC 15:22 → OBSVTOIN 15:22
PROVIDERS: ADMIT Internal Medicine; ATTEND Internal Medicine
PROC: 0DB68ZX Excision of Stomach, Via Natural or Artificial Opening Endoscopic, Diagnostic (ICD-10-PCS; principal; 2016-11-06 08:30)
DX: K57.32 Diverticulitis of large intestine without perforation or abscess without bleeding (principal); J44.9 Chronic obstructive pulmonary disease, unspecified; R10.13 Epigastric pain; R11.2 Nausea with vomiting, unspecified; F12.10 Cannabis abuse, uncomplicated; Z87.891 Personal history of nicotine dependence; F41.8 Other specified anxiety disorders; K31.84 Gastroparesis; K29.70 Gastritis, unspecified, without bleeding